=== PATIENT | male | born 1960 | race Caucasian/White ===

== ENCOUNTER 2019-06-30 15:31 | Outpatient (CLI) | payer OTHER, SELFPAY ==
--- NOTE | ~2019-06-30 | XR_ITS ---
XR lumbar spine 2-3V DATE: 06/30/2019 15:53 INDICATION: Myalgia. Back pain. TECHNIQUE: AP, lateral, coned lateral lumbosacral views COMPARISON: None FINDINGS: Normal alignment of the lumbar spine. No fracture or bone destruction or spondylolisthesis. The lumbar pedicles and sacroiliac joints are intact. There is minimal degenerative spurring of the lumbar spine. The lumbar and lumbosacral interspaces are well preserved. IMPRESSION: Minimal degenerative spurring of the lumbar spine Reviewed, dictated and finalized at location B. NING AND DEVELOPMENT ASSOCIATE
--- NOTE | ~2019-06-30 | XR_ITS ---
XR hip BI 2V w AP pelvis DATE: 06/30/2019 15:53 INDICATION: Pelvic and bilateral hip pain. Myalgia. TECHNIQUE: AP pelvis. AP, lateral and crosstable lateral views of each hip COMPARISON: None FINDINGS: There is mild spurring of the right femoral head consistent with mild osteoarthritis. Hip j oint spaces are relatively preserved. No fracture or dislocation, avascular necrosis or bone destruct ion of either hip is noted. The pubic symphysis and sacroiliac joints are intact. No pelvic fracture or bone destruction. IMPRESSION: Mild right hip osteoarthritis Reviewed, dictated and finalized at location B. ESTATE BROKER ASSOCIATE
== END 2019-06-30 15:32 | disposition home or self-care (01) ==
PROVIDERS: PCP Family Medicine; Visit Provider Family Medicine
DX: M79.10 Myalgia, unspecified site (principal); M54.5 Low back pain; M25.551 Pain in right hip; M25.552 Pain in left hip; M16.11 Unilateral primary osteoarthritis, right hip; M46.06 Spinal enthesopathy, lumbar region
CPT/HCPCS: 72100; 73521

== ENCOUNTER → 2020-08-17 02:22 | Outpatient (CLI) | payer OTHER, SELFPAY ==
[2020-08-17 20:22] LABS: SARS-CoV-2 RNA PCR Negative
== END ==
PROVIDERS: PCP Family Medicine; Visit Provider Internal Medicine Gastroenterology
DX: Z01.812 Encounter for preprocedural laboratory examination (principal); Z20.822 Contact with and (suspected) exposure to COVID-19
CPT/HCPCS: C9803; U0003; U0005

== ENCOUNTER 2020-08-21 01:26 | Day surgery (SDC) | payer OTHER, SELFPAY ==
[2020-08-07 13:54] VITALS: BMI 23.1
--- NOTE | 2020-08-20 13:44 | WPDANESEPPF ---
Anes - Initial Pre Proc Eval Procedure: Operation Date: 08/21/20 07:30 Proposed Procedures p Screening Colonoscopy - Fran Cordero MD Date/Time: 08/20/20 13:44 Surgeon: Fran Cordero MD Pre Op Diagnosis: hx of colon polyps, Neoplasm Screening Patient Data Age: 60 Gender: M Height: 5 ft 11 in Weight: 75 kg Allergies Allergy/AdvReac Type Severity Reaction Status Date / Time No Known Allergies Allergy Verified 08/21/20 06:24 Home Medications Medication Instructions Recorded Confirmed Type aspirin 81 mg tablet,delayed 81 mg PO DAILY 05/29/19 08/21/20 History release rosuvastatin 10 mg tablet 10 mg PO DAILY 11/07/19 08/21/20 History Patient hx anesthesia problems: none Family hx anesthesia problems: none PMFSH Past Medical History Medical History Abnormal colonoscopy Anxiety GERD without esophagitis Hyperlipidemia Mixed hyperlipidemia GASPER (obstructive sleep apnea) Family History Family History Mother Family history of glaucoma Hypertension Family history of elevated blood lipids Carcinoma of colon Family history of coronary artery disease Father Hypertension Family history of elevated blood lipids Social History Social History Smoking packs per day: 1 Smoking cigarettes per day: 20.0 Years smoked: 34 Smoking pack-years: 34.00 Smoking status: Former smoker Tobacco type: cigarettes Alcohol intake: never Substance use type: does not use Living arrangements: with family Gender identity (if verbalized by the patient): Male Spiritual care concerns: No Anes - Eval Final PreProcedure Day of Procedure 08/20/20 13:44 Patient weight: normal Heart: regular rate and rhythm Lungs: clear to auscultation Airway: Mallampati scale class II Neurological: alert and oriented Last oral intake: >/= 8 hours ASA classification: II Emergent: no Anesthetic plan: proceed Anesthesia type and monitoring: general GIVS and standard monitoring Informed Consent: The patient's anesthetic plan and its attendant risks and benefits were discussed with the patient/family/POA. Questions were solicited and answers provided to the satisfaction of the patient/family/POA.
[2020-08-21 06:26] VITALS: BMI 23.1
[2020-08-21] MEDS: LACTATED RINGERS 1,000 ML 150 ML IV CONT (06:35)
[2020-08-21 07:02] VITALS: BP 118/79; PULSE 78; RESP 18; TEMP 36.8; O2SAT 100
--- NOTE | 2020-08-21 07:02 | PM.HPGS ---
History of Present Illness History of Present Illness Consent: Risks, benefits, and alternatives have been discussed and questions answered. Patient agrees to proceed with procedure. Chief complaint: hx of colon polyps, Neoplasm Screening Narrative: Sachin Kramer is a 60 year old male Referred for colon cancer screening. He has a family history of colon cancer in his mother Review of Systems Review of Systems: All systems reviewed & are unremarkable except as noted in HPI and below PMFSH Past Medical History Medical History Abnormal colonoscopy Anxiety GERD without esophagitis Hyperlipidemia Mixed hyperlipidemia GASPER (obstructive sleep apnea) Family History Family History Mother Family history of glaucoma Hypertension Family history of elevated blood lipids Carcinoma of colon Family history of coronary artery disease Father Hypertension Family history of elevated blood lipids Social History Social History Smoking packs per day: 1 Smoking cigarettes per day: 20.0 Years smoked: 34 Smoking pack-years: 34.00 Smoking status: Former smoker Tobacco type: cigarettes Alcohol intake: never Substance use type: does not use Living arrangements: with family Gender identity (if verbalized by the patient): Male Spiritual care concerns: No Meds Home Medications and Allergies Home Medications Medication Instructions Recorded Confirmed Type aspirin 81 mg tablet,delayed 81 mg PO DAILY 05/29/19 08/21/20 History release rosuvastatin 10 mg tablet 10 mg PO DAILY 11/07/19 08/21/20 History Allergies Allergy/AdvReac Type Severity Reaction Status Date / Time No Known Allergies Allergy Verified 08/21/20 06:24 Exam Resp: Auscultation: clear to auscultation bilaterally Cardio: Rate: regular rate Rhythm: regular rhythm GI: GI Palp: Yes Soft to palpation and No Tenderness to palpation present (GI) Assessment and Plan Assessment and plan (1) Screening for colon cancer: Code(s): Z12.11 - Encounter for screening for malignant neoplasm of colon Status: Acute Assessment and Plan: Colonoscopy with possible biopsy or polypectomy or cautery or injection of substances.
[2020-08-21 07:03] VITALS: BP 118/79; PULSE 78; RESP 18; TEMP 36.8; O2SAT 100
[2020-08-21 07:43] VITALS: BP 101/66; PULSE 64; RESP 13; O2SAT 97
[2020-08-21 07:53] VITALS: BP 98/67; PULSE 66; RESP 18; O2SAT 99
[2020-08-21 08:03] VITALS: BP 120/76; PULSE 76; RESP 21; O2SAT 99
== END 2020-08-21 08:14 | disposition home or self-care (01) ==
PROVIDERS: PCP Family Medicine; Visit Provider Internal Medicine Gastroenterology
PROC: 0DJD8ZZ Inspection of Lower Intestinal Tract, Via Natural or Artificial Opening Endoscopic (ICD-10-PCS; CPT 45378; principal; 2020-08-21 07:30)
DX: Z12.11 Encounter for screening for malignant neoplasm of colon (principal); K64.8 Other hemorrhoids; D12.2 Benign neoplasm of ascending colon; E78.2 Mixed hyperlipidemia; K21.9 Gastro-esophageal reflux disease without esophagitis; G47.33 Obstructive sleep apnea (adult) (pediatric); F41.9 Anxiety disorder, unspecified; Z79.82 Long term (current) use of aspirin; Z87.891 Personal history of nicotine dependence
CPT/HCPCS: 45380; 88305; J2704; J7120

== ENCOUNTER 2020-11-05 14:33 | Outpatient (CLI) | payer OTHER, SELFPAY ==
--- NOTE | ~2020-11-05 | CT_ITS ---
EXAMINATION: CT lung screening DATE: 11/05/2020 15:48 INDICATION: Lung cancer screening. History of nicotine dependence. TECHNIQUE: Computed tomography (CT) of the chest was performed without intravenous contrast. The dose -length product was 78.57 mGy-cm. Automated exposure control and iterative reconstruction technique w ere employed. COMPARISON: CT dated 12/21/2016 FINDINGS: Heart size is normal. No thoracic lymphadenopathy. Heart size is normal. No significant ple ural or pericardial effusion. There is atherosclerosis of the aorta and coronary arteries.. Slightly increased size of subpleural left paraspinal mass posterior to the descending aorta measuring 3.3 cm craniocaudal x1.9 cm AP x1.8 cm transverse compared with 2.7 x 1.7 x 1.6 on prior examination. There is a 4 mm right lower lobe nodule, image 59. There is a 4 mm right lower lobe nodule, image 70, uncha nged there is a 5 mm right middle lobe nodule without significant change. 3 mm left lower lobe nodule , image 68.. 5 mm subsolid nodule right upper lobe without significant change. IMPRESSION: 1. Lung Rads 4A, suspicious: Recommend follow-up [address], PET/CT or percutaneous biopsy. Slight increased size of subpleural left paraspinal soft tissue mass measuring 3.3 x 1.9 x 1.8 cm. Di fferential diagnosis includes neurogenic tumors, complicated duplication cysts versus malignancy such as lymphoma, or less likely sarcoma or metastatic disease. Reviewed, dictated and finalized at location A. IMPRESSION: 1. Lung Rads 4A, suspicious: Recommend follow-up [address], PET/CT or percutaneous biopsy. Slight increased size of subpleural left paraspinal soft tissue mass measuring 3.3 x 1.9 x 1.8 cm. Differential diagnosis includes neuro genic tumors, complicated duplication cysts versus malignancy such as lymphoma, or less likely sarcoma or metastatic disease.
== END 2020-11-05 14:34 | disposition home or self-care (01) ==
PROVIDERS: PCP Family Medicine; Visit Provider Physician Assistant
DX: Z12.2 Encounter for screening for malignant neoplasm of respiratory organs (principal); Z87.891 Personal history of nicotine dependence; R91.8 Other nonspecific abnormal finding of lung field
CPT/HCPCS: 71271

== ENCOUNTER → 2022-06-23 15:21 | Outpatient (CLI) | payer OTHER, SELFPAY ==
--- NOTE | ~2022-06-23 | XR_ITS ---
EXAMINATION: XR ribs BI 3V w CXR 2V Exam Date/Time: 06/23/2022 15:33 PORCELAIN WAXER HISTORY: Overuse with tennis, B/L/lateral rib pain Comparison: None available. RESULT: Lines, tubes, and devices: None. Lungs and pleura: Clear. Cardiomediastinal silhouette: Stable. Mildly prominent central pulmonary arteries. Other: No acute osseous or upper abdominal finding. IMPRESSION: No acute cardiopulmonary process. No acute osseous finding in the ribs Reviewed, dictated and finalized at location K. ELAIN WAXER
== END ==
PROVIDERS: PCP Family Medicine; Visit Provider Family Medicine
DX: R07.81 Pleurodynia (principal)
CPT/HCPCS: 71046; 71110

== ENCOUNTER 2022-12-15 07:51 | Outpatient (CLI) | payer OTHER, SELFPAY | END 2022-12-15 07:52 | disposition home or self-care (01) | LOC: ANHAUDIO 07:51 | PROVIDERS: PCP Family Medicine; Visit Provider Family Medicine | DX: H90.3 Sensorineural hearing loss, bilateral (principal) | CPT/HCPCS: 92557; 92567 ==

== ENCOUNTER → 2023-07-16 10:25 | Outpatient (CLI) | payer OTHER, SELFPAY ==
--- NOTE | ~2023-07-16 | XR_ITS ---
EXAMINATION: XR lumbar spine min 4V DATE: 07/16/2023 10:58 INDICATION: Low back pain TECHNIQUE: Anteroposterior, lateral, and bilateral oblique views of the lumbar spine, and cone-down l ateral view of the lumbosacral junction were obtained. COMPARISON: 06/30/2019 FINDINGS: Bone alignment is normal. There is no fracture. There is mild loss of intervertebral disc s pace height at L5-S1. There is mild facet joint osteoarthritis at L5-S1. The vertebral body heights a re maintained. There is moderate osteoarthritis of the hips. IMPRESSION: 1. Mild lumbar spondylosis without acute findings or significant interval change. Reviewed, dictated and finalized at location B. TS CENTRE MANAGER IMPRESSION: 1. Mild lumbar spondylosis without acute findings or significant interval ernie stevens
== END ==
PROVIDERS: PCP Family Medicine; Visit Provider Family Medicine
DX: M47.896 Other spondylosis, lumbar region (principal)
CPT/HCPCS: 72110

== ENCOUNTER 2023-11-29 11:12 | Outpatient (CLI) | payer OTHER, SELFPAY ==
--- NOTE | ~2023-11-29 | XR_ITS ---
XR finger 2nd LT min 2V Ordering provider: Cindy Vela DO History: . Lump L 2nd finger b/t mid and dist phalanges . Comparison: None. FINDINGS: BONES: No acute fracture or dislocation. JOINT SPACES: Narrowing of the proximal and distal interphalangeal joints. SOFT TISSUES: Normal. IMPRESSION: No acute osseous abnormality. Osteoarthritic changes of the proximal and distal interphalangeal joints. Reviewed, dictated and finalized at location A.
== END 2023-11-29 11:13 ==
PROVIDERS: PCP Family Medicine; Visit Provider Family Medicine
DX: R22.32 Localized swelling, mass and lump, left upper limb (principal); M19.042 Primary osteoarthritis, left hand
CPT/HCPCS: 73140

== ENCOUNTER 2024-01-20 08:02 | Outpatient (CLI) | payer OTHER, SELFPAY | END 2024-01-20 08:03 | disposition home or self-care (01) | LOC: ANHAUDIO 08:04 | PROVIDERS: PCP Family Medicine; Visit Provider Otolaryngology | DX: H69.90 Unspecified Eustachian tube disorder, unspecified ear (principal); H90.6 Mixed conductive and sensorineural hearing loss, bilateral | CPT/HCPCS: 92557; 92567 ==

== ENCOUNTER 2024-05-09 09:38 | Outpatient (CLI) | payer OTHER, SELFPAY ==
--- NOTE | ~2024-05-09 | XR_ITS ---
XR knee RT min 4V Ordering provider: Cindy Vela DO History: . medial knee pain after getting up from sitting position . Comparison: None. FINDINGS: BONES: No acute fracture or dislocation. JOINT SPACES: Normal. SOFT TISSUES: Normal. IMPRESSION: No acute osseous abnormality right knee. Reviewed, dictated and finalized at location A. DE GAMES MECHANIC
== END 2024-05-09 09:39 | disposition home or self-care (01) ==
LOC: GOSHIMG 09:39
PROVIDERS: PCP Family Medicine; Visit Provider Family Medicine
DX: M25.561 Pain in right knee (principal)
CPT/HCPCS: 73564

== ENCOUNTER 2024-08-10 08:12 | Outpatient (CLI) | payer OTHER, SELFPAY ==
--- NOTE | ~2024-08-10 | MR_ITS ---
MRI of the right knee Clinical history: Pain Technique: Coronal proton density and proton density-weighted images, sagittal proton-density and T2 fat-sat images, and axial proton-density fat-saturated images were acquired. Findings: Anterior and posterior cruciate ligaments are intact. Medial collateral ligament and the la teral collateral ligament complex are intact. Popliteus tendon is intact. Medial and lateral menisci are intact, without evidence of tear. There is minimal chondromalacia patella. There is moderate to high-grade chondral malacia extensively involving the medial femoral condyle. Extensor mechanism is intact. Small joint effusion present. No Lamb's cyst. 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 Mild chondrom alacia patella. Small joint effusion. Reviewed, dictated and finalized at [facility]. 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 Mild chondromalacia patella. Small joint effusion.
== END 2024-08-10 08:13 | disposition home or self-care (01) ==
LOC: GOSHIMG 08:12
PROVIDERS: PCP Family Medicine; Visit Provider Family Medicine
DX: M25.461 Effusion, right knee (principal)
CPT/HCPCS: 73721

== ENCOUNTER 2024-10-18 04:06 | Emergency (ER) | payer OTHER, SELFPAY ==
--- NOTE | ~2024-10-18 | XR_ITS ---
Clinical Indication: Palpitations PA and lateral views of the chest: Comparison: 06/23/2029 Findings: The lungs are clear, without evidence of focal consolidation or pleural effusion. Cardiome diastinal silhouette is within normal limits. Bones and soft tissues are unremarkable. Impression: Normal chest. Reviewed, dictated and finalized at location . Impression: Normal chest.
--- OUTSIDE RECORDS SUMMARY | 2024-10-18 04:08 | XMS_ITS | Encounter Summary ---
Author Organization [facility] Address [address] [place] [address] Phone Care Team Providers Care Flare Worker Name Role Phone Cindy Vela DO Primary Care Provider [phone] Cindy Vela DO Primary Care Provider + [phone] Cindy Vela DO Unavailable [phone] Encounter Details Date Type Department Care Team (Latest Contact Info) Description 11/05/2020 Orders Only [facility] Scanning, Provider Social History Tobacco Use Types Packs/Day Years Used Date Smoking Tobacco: Never Assessed Sex and Gender Information Value Date Recorded Sex Assigned at Not on file 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 Gender Identity Not on file Sexual Orientation Not on file documented as of this encounter Plan of Treatment Not on file documented as of this encounter Procedures Procedure Name Priority Date/Time Associated Diagnosis Comments SCAN - RADIOLOGY/IMAGING 11/05/2020 documented in this encounter Results * SCAN - RADIOLOGY/IMAGING (11/05/2020) Anatomical Region Laterality Modality Other us Provider Scanning Final Result documented in this encounter Visit Diagnoses Not on filedocumented in this encounter Care Teams Flare Worker Relationship Specialty Start Date End Date Cindy Vela DO PCP - General Family Medicine 11/12/20 03/17/23 Cindy Vela DO PCP - General Family Medicine 03/18/23 Cindy Vela DO Family Medicine 03/18/23 documented as of this encounter
[2024-10-18 04:09] VITALS: BP 156/92; PULSE 112; RESP 20; TEMP 36.8; O2SAT 100
--- OUTSIDE RECORDS SUMMARY | 2024-10-18 04:09 | XMS_ITS | Clinical Summary ---
Author Organization [facility] Address [address] [place] [address] Care Team Providers Care Gaming Commissioner Name Role Phone Cindy Vela DO Primary Care Provider [phone]- [phone] Cindy Vela DO Unavailable [phone] Allergies No known active allergies Medications aspirin 81 mg enteric coated tablet daily Active omeprazole (PriLOSEC) 20 mg capsule daily Active coenzyme Q10 200 mg capsule Co Q-10 1 tablet once day Active calcium carbonate (TUMS) 500 mg calcium (200 mg of elemental calcium) chewable tablet Take 1 tablet/chew tab (500 mg total) by mouth daily Active multivitamin capsule Multivitamins 1 tablet once day Active rosuvastatin (CRESTOR) 40 mg tablet TAKE 1 TABLET BY MOUTH EVERYDAY AT BEDTIME 90 tablet 3 4 Active ergocalciferol (VITAMIN D) 50,000 unit capsule Take 1 capsule (50,000 Units total) by mouth once a week 4 Active naproxen (NAPROSYN) 500 mg tablet Take 1 tablet (500 mg total) by mouth 2 (two) times a day 4 Active ezetimibe (ZETIA) 10 mg tablet Take 1 tablet (10 mg total) by mouth daily 90 tablet 3 5 Active Active Problems Patient Care Coordination No te Formatting of this note migh t be different from the original. Referring provider: Dr. Cindy Pate Sachin Williams is a 60 year old with a left paraspinal mass. On 11/05/2020 the patient underwent a lung cancer screening CT which noted a slight increase in size of a left paraspinal mass posterior to the descending aorta measuring 3.3 x 1.9 x 1.8 cm. This previously measured 2.7 x 1.7 x 1.6 cm in November 2016. Additional findings included a 4 mm right lower lobe pulmonary nodule. There was a no other 4 mm right lower lobe pulmonary nodule that was unchanged. There was a 5 mm right middle lobe pulmonary nodule without significant change. There was a 3 mm left lower lobe pulmonary nodule. Finally there was a 5 mm sub solid nodule in the right upper lobe without any significant change. Patient is a current smoker with a 34 pack year smoking history. Patient presents today for further surgical evaluation. Review of systems: Genitourinary: Positive for nighttime urination. Gastrointestinal: Positive for indigestion. Psychiatric: Positive for anxiety. All other systems reviewed and are negative. Problem Noted Date Diagnosed Date Patent foramen ovale 11/17/2023 Precordial chest pain 10/15/2023 Exertional dyspnea 10/06/2023 Lightheadedness 10/06/2023 Periodic limb movement 07/20/2023 Psychophysiological insomnia 06/01/2023 Peripheral arterial disease 04/14/2023 Carotid artery stenosis 04/14/2023 Mixed hyperlipidemia 04/14/2023 Cigarette nicotine dependence in remission 04/14 Obstructive sleep apnea 04/14/2023 Peroneal tendinitis of right lower extremity Benign paraspinal mass 12/30/2020 Multiple pulmonary nodules 11/15/2020 Overview (11/15/2020): Added automatically from request for surgery [id number] Dizziness 06/26/2019 Intermittent claudication 06/26/2019 Palpitations 06/26/2019 Snoring 12/30/2016 Carotid artery stenosis 12/30/2016 Chest pain 12/28/2016 Hyperlipidemia 12/28/2016 Resolved Problems Problem Noted Date Diagnosed Date Resolved Date Obstructive sleep apnea syndrome 02/11/2017 11/02/2023 Immunizations Immunization Administration Dates Next Due Hep B Vaccine 07/22/2005,03/18/2005,02/04/2005 Influenza, Quadrivalent, Rec ombinant, Egg Free, Preservative Free, Intramuscular 03/28/2020,03/23/2019 Influenza, Quadrivalent, Spl it, Preservative Free, Intramuscular 03/31/2018 Moderna SARS-CoV-2 Monovalen t Vaccination (12+ YRS) 07/12/2020,06/13/2020 Surgical History Surgery Date Site/Laterality Comments HERNIA REPAIR Medical History Medical History Date Comments Alcoholism (HCC) HLD (hyperlipidemia) Prostate disorder Gastric reflux GERD (gastroesophageal reflux disease) 6 Sleep apnea 2016 Coronary artery disease Peripheral artery disease Family History Medical History Relation Name Comments Hypertension Brother Aortic aneurysm Father Jg Cancer Father Jg Cancer Mother Za Kramer Clotting disorder Mother Za Kramer Hyperlipidemia Mother Za Kramer Hypertension Mother Za Kramer Relation Name Status Comments Brother Father Jg Mother Za Kramer Alive Social History Tobacco Use Types Packs/Day Years Used Date Smoking Tobacco: Former Cigarettes 1 32.8 0 05/24/1978 - 03/17/2011 Smokeless Tobacco: Never AUDIT-C Answer Date Recorded Q1: How often do you have a drink containing alc ohol? 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 Not on file Not on file N ot on file Obstetrics History Last Filed Vital Signs Vital Sign Reading Time Taken Comments Blood Pressure 112/82 05/31/2024 10:32 AM FOLDING MACHINE SETTER Pulse 70 05/31/2024 10:32 AM FOLDING MACHINE SETTER Temperature 36.4 C (97.6 F) 02/03/2024 1:07 PM CDT Respiratory Rate 18 05/31/2024 10:32 AM FOLDING MACHINE SETTER Oxygen Saturation 98% 05/31/2024 10:32 AM FOLDING MACHINE SETTER Inhaled Oxygen Concentration - - Weight 86.2 kg (190 lb 1.6 oz) 05/31/2024 10:32 AM FOLDING MACHINE SETTER Height 180.3 cm (5' 11) 05/31/2024 10:32 AM FOLDING MACHINE SETTER Body Mass Index 26.51 05/31/2024 10:32 AM FOLDING MACHINE SETTER Plan of Treatment Health Maintenance Due Date Last Done Comments Colon Cancer Screening-Colonoscopy 1960 Depression Screening 1960 Hepatitis C Screening 1960 Prostate Cancer Screening-PSA 1960 DTaP/Tdap/Td Vaccine (1 - Tdap) 1971 Regular Well Visit/Exam 18-64 1978 Pneumococcal vaccine <65 (1 of 2 - PCV) 1979 Zoster Vaccine (1 of 2) 2010 Covid-19 Vaccine (3 - season) 2024, 06/13/2020 Influenza Vaccine (Season Ended) 2025 03/28/2020, 03/23/2019, 03/31/2018 Lung Cancer Screening 05/17/2025 05/16/2024 , 04/30/2023, 03/12/2022 Hepatitis B Screening Completed 07/22/2005 , 03/18/2005, 02/04/2005 Procedures Procedure Name Priority Date/Time Associated Diagnosis Comments CT LUNG CANCER SCREENING Schedule Routine, Read Routine (OP Routine) 05/16/2024 9:50 AM FOLDING MACHINE SETTER Personal history of nicotine dependence from Last 3 Months or Most Recently Relevant to Health Maintenance Results * CT Lung Cancer Screening (05/16/2024 9:50 AM FOLDING MACHINE SETTER) Anatomical Region Laterality Modality Chest N/A Computed Tomogra phy 05/16/2024 10:2 5 AM FOLDING MACHINE SETTER Impressions 05/16/2024 10:49 AM FOLDING MACHINE SETTER 1. LungRADS Category 2 (benign) . Recommend Low dose Screening CT of chest in 12 months. LungRADS Categories: 1 - Negative (no nodules, or only benign calcified or fat-containing nodules) 2 - Benign Appearance or Behavior (nodules with very low likelihood of becoming a clinically active cancer due to size or lack of growth) 3 - Probably Benign (probably benign findings-short term follow up suggested; includes nodules with a low likelihood of becoming a clinically active cancer) 4A,4B,4X - Suspicious (category 3 or 4 nodules with findings for which additional diagnostic testing and/or tissue sampling is recommended) S - Other (clinically significant or potentially clinically significant findings (non-lung cancer) C - Prior Lung Cancer (modifier for patients with a prior diagnosis of lung cancer who return to screening) Dictated by: Almita Dudley MD The radiology attending physician has personally reviewed this study, and had reviewed and/or edited this written report and agrees with it. Electronically signed by: Sachin Okeefe M.D. Narrative 05/16/2024 10:49 AM FOLDING MACHINE SETTER EXAMINATION: Lung cancer screening CT of the Chest without intravenous contrast HISTORY: Lung Cancer Screening TECHNIQUE: Low radiation dose chest protocol. No intravenous contrast. Reconstructed slice width 1.[address] Dose Index 0.84 mGy. Dose-length product 36.5 mGy-cm. COMPARISON: 04/30/2023, 03/12/2022 CT, and 12/21/2016. FINDINGS: Lung nodules or findings of lung cancer: 1. Unchanged 5 mm nodule in the right upper lobe (table position 217.7) dating back to 03/12/2022 and therefore benign. 2. Unchanged 3 mm nodule in the lingula (table position 301.0) unchanged from 2021 3. Several other sub-4 mm nodules (approximately 20) in both lungs are not significantly changed from prior. Smoking related lung disease: Mild apical predominant centrilobular emphysema. Other findings: Unchanged since 1.7 cm posterior mediastinal mass arising at the left T6-T7 level, likely schwannoma. Coronary arterial calcifications. Procedure Note Sachin Okeefe MD - 05/16/2024 EXAMINATION: Lung cancer screening CT of the Chest without intravenous contrast HISTORY: Lung Cancer Screening TECHNIQUE: Low radiation dose chest protocol. No intravenous contrast. Reconstructed slice width 1.[address] Dose Index 0.84 mGy. Dose-length product 36.5 mGy-cm. COMPARISON: 04/30/2023, 03/12/2022 CT, and 12/21/2016. FINDINGS: Lung nodules or findings of lung cancer: 1. Unchanged 5 mm nodule in the right upper lobe (table position 217.7) dating back to 03/12/2022 and therefore benign. 2. Unchanged 3 mm nodule in the lingula (table position 301.0) unchanged from 2021 3. Several other sub-4 mm nodules (approximately 20) in both lungs are not significantly changed from prior. Smoking related lung disease: Mild apical predominant centrilobular emphysema. Other findings: Unchanged since 1.7 cm posterior mediastinal mass arising at the left T6-T7 level, likely schwannoma. Coronary arterial calcifications. IMPRESSION: 1. LungRADS Category 2 (benign) . Recommend Low dose Screening CT of chest in 12 months. LungRADS Categories: 1 - Negative (no nodules, or only benign calcified or fat-containing nodules) 2 - Benign Appearance or Behavior (nodules with very low likelihood of becoming a clinically active cancer due to size or lack of growth) 3 - Probably Benign (probably benign findings-short term follow up suggested; includes nodules with a low likelihood of becoming a clinically active cancer) 4A,4B,4X - Suspicious (category 3 or 4 nodules with findings for which additional diagnostic testing and/or tissue sampling is recommended) S - Other (clinically significant or potentially clinically significant findings (non-lung cancer) C - Prior Lung Cancer (modifier for patients with a prior diagnosis of lung cancer who return to screening) Dictated by: Almita Dudley MD The radiology attending physician has personally reviewed this study, and had reviewed and/or edited this written report and agrees with it. Electronically signed by: Sachin Okeefe M.D. Cindy Vela DO [facility] CT PROCEDURES Final Re sult from Last 3 Months or Most Recently Relevant to Health Maintenance Insurance [facility] [id number] [address] [facility] [id number] Care Teams Gaming Commissioner Relationship Specialty Start Date End Date Cindy Vela DO PCP - General Family Medicine 03/18/23 Cindy Vela DO Family Medicine 03/18/23
--- OUTSIDE RECORDS SUMMARY | 2024-10-18 04:09 | XMS_ITS | Data Portability ---
Author Organization [place] - [facility] OFFICE Address [address] [place] [address] Care Team Providers Care Transitions Manager Name Role Phone XU HAYNES Primary Care Provider Assessment Encounter Date Assessment Date Assessment LastModified by Organization Details LastModified Time 01/16/2020 01/16/2020 Discussed with patient findings, diagnosis, and prognosis. Discussed evaluation and treatment options including risks and benefits with patient, and patient expressed understanding. The following interventions were recommended: heart healthy low-fat, low-sodium diet, begin regular exercise, maintain appropriate weight, continue current medications, needs to keep LDL less than 70 and HDL more than 40, and medical follow-up as noted. Not available 01/15/2020 21:27:15 01/28/2021 01/28/2021 Discussed with patient findings, diagnosis, and prognosis. Discussed evaluation and treatment options including risks and benefits with patient, and patient expressed understanding. The following interventions were recommended: heart healthy low-fat, low-sodium diet, begin regular exercise, maintain appropriate weight, continue current medications, needs to keep LDL less than 70 and HDL more than 40, and medical follow-up as noted. Not available 01/28/2021 12:15:17 04/01/2021 04/01/2021 Discussed with patient findings, diagnosis, and prognosis. Discussed evaluation and treatment options including risks and benefits with patient, and patient expressed understanding. The following interventions were recommended: heart healthy low-fat, low-sodium diet, begin regular exercise, maintain appropriate weight, continue current medications, needs to keep LDL less than 70 and HDL more than 40, and medical follow-up as noted. [email or web address] Not available 03/31/2021 16:35:32 11/25/2021 11/25/2021 Discussed with patient findings, diagnosis, and prognosis. Discussed evaluation and treatment options including risks and benefits with patient, and patient expressed understanding. The following interventions were recommended: heart healthy low-fat, low-sodium diet, begin regular exercise, maintain appropriate weight, continue current medications, needs to keep LDL less than 70 and HDL more than 40, and medical follow-up as noted. [email or web address] Not available 11/25/2021 13:41:39 07/17/2022 07/17/2022 Discussed with patient findings, diagnosis, and prognosis. Discussed evaluation and treatment options including risks and benefits with patient, and patient expressed understanding. The following interventions were recommended: heart healthy low-fat, low-sodium diet, begin regular exercise, maintain appropriate weight, continue current medications, needs to keep LDL less than 70 and HDL more than 40, and medical follow-up as noted. [email or web address] Not available 07/17/2022 11:19:59 Plan of Treatment Reminders Order Date Submit Date Provider Last Modified By Organization Details Last Modified Time Details Appointments None recorded. Lab None recorded. Referral None recorded. Procedures None recorded. Surgeries None recorded. Imaging electrocard iogram 2022 023 MARGUERITE Not available 3 11:22:20 electrocard iogram 2022 023 MARGUERITE Not available 3 11:22:40 electrocard iogram 2021 022 MARGUERITE Not available 2 15:58:55 electrocard iogram 2021 022 MARGUERITE Not available 2 15:59:37 electrocard iogram 2020 021 MARGUERITE Not available 1 10:42:42 electrocard iogram 2020 021 MARGUERITE Not available 1 10:42:10 electrocard iogram 2020 021 MARGUERITE Not available 1 18:22:00 electrocard iogram 2020 021 [email or web address] Not available 1 13:30:19 electrocard iogram 2019 020 MARGUERITE Not available 0 17:06:26 Medication Orders rosuvastati n 40 mg tablet 2021 022 MARGUERITE [id number], [address] [place], [address], 13:54:44 rosuvastati n 20 mg tablet 2020 021 [email or web address] [facility] [id number] In [facility], [address] [place], [address], 11:27:23 Patient TargetsNo targets recorded. Patient Instructions Encounter Date Encounter Id Patient Instructions Last Modified By Organization Details Last Modified Time 01/16/2020 [id number] chest pain: care instructions [email or web address] Not available 01/16/2020 16:57:54 palpitations: care instructions [email or web address] Not available 01/16/2020 16:57:55 sleep apnea: car e instructions [email or web address] Not available 01/16/2020 16:57:55 dizziness: care instructions [email or web address] Not available 01/16/2020 16:57:55 high cholesterol : care instructions [email or web address] Not available 01/16/2020 16:57:54 carotid stenosis : care instructions Not available 01/16/2020 16:57:55 01/28/2021 [id number] chest pain: care instructions [email or web address] Not available 01/28/2021 13:28:42 palpitations: care instructions [email or web address] Not available 01/28/2021 13:28:42 sleep apnea: car e instructions [email or web address] Not available 01/28/2021 13:28:42 dizziness: care instructions [email or web address] Not available 01/28/2021 13:28:41 high cholesterol : care instructions [email or web address] Not available 01/28/2021 13:28:41 carotid stenosis : care instructions [email or web address] Not available 01/28/2021 13:28:42 04/01/2021 [id number] chest pain: care instructions [email or web address] Not available 04/01/2021 12:14:40 palpitations: care instructions [email or web address] Not available 04/01/2021 12:14:40 sleep apnea: car e instructions [email or web address] Not available 04/01/2021 12:14:40 dizziness: care instructions [email or web address] Not available 04/01/2021 12:14:39 high cholesterol : care instructions Not available 04/01/2021 12:14:40 carotid stenosis : care instructions [email or web address] Not available 04/01/2021 12:14:40 11/25/2021 [id number] chest pain: care instructions Not available 11/25/2021 13:54:38 palpitations: care instructions [email or web address] Not available 11/25/2021 13:54:38 sleep apnea: car e instructions [email or web address] Not available 11/25/2021 13:54:38 dizziness: care instructions Not available 11/25/2021 13:54:38 high cholesterol : care instructions [email or web address] Not available 11/25/2021 13:54:38 carotid stenosis : care instructions [email or web address] Not available 11/25/2021 13:54:38 07/17/2022 [id number] chest pain: care instructions [email or web address] Not available 07/17/2022 11:35:06 palpitations: care instructions [email or web address] Not available 07/17/2022 11:35:05 sleep apnea: car e instructions [email or web address] Not available 07/17/2022 11:35:06 dizziness: care instructions [email or web address] Not available 07/17/2022 11:35:05 high cholesterol : care instructions [email or web address] Not available 07/17/2022 11:35:06 carotid stenosis : care instructions [email or web address] Not available 07/17/2022 11:35:05 Reason for Referral None Reported. Results Created Date Observation Date Name Description Value Unit Range Abnormal Flag Note LastModifiedBy Organization Detail LastModifiedTime 01/16/20 20 01/16/2020 elect rocar diogr am No observ ation record ed. [email or web address] Not Available 01/15 14:40:06 01/17/20 20 01/02/2020 US, gianlucale x, arter ial, lower extre mity No observ ation record ed. [email or web address] Not Available 2019 09:45:33 01/29/20 21 01/28/2021 elect rocar diogr am No observ ation record ed. augustine Arias MD [address], [place], [address], 03/20/2021 18:22:00 01/29/20 elect rocar diogr am No observ ation record ed. Fredo Arias MD [address], [place], [address], 01/28/2021 13:28:29 02/12/20 21 02/07/2021 elect rocar diogr am No observ ation record ed. [email or web address] Not Available 2020 11:57:59 03/31/2003/31/2021 elect rocar diogr am No observ ation record ed. bryan Arias MD [address], [place], [address], 05/14/2021 10:42:42 03/31/20 21 03/31/2021 elect rocar diogr am No observ ation record ed. augustine Arias MD [address], [place], [address], 05/14/2021 10:42:10 11/26/19 22 11/25/2021 elect rocar diogr am No observ ation record ed. [email or web address] Fredo Arias MD [address], [place], [address], 11/25/2021 15:58:55 11/26/19 22 11/25/2021 elect rocar diogr am No observ ation record ed. [email or web address] Fredo Arias MD [address], [place], [address], 11/25/2021 15:59:37 11/27/19 22 11/25/2021 elect rocar diogr am No observ ation record ed. [email or web address] Not Available 2021 09:37:13 12/26/19 22 12/11/2021 US, carot id arter y No observ ation record ed. [email or web address] Not Available 2021 15:00:57 07/17/19 23 07/21/2022 elect rocar diogr am No observ ation record ed. [email or web address] Fredo Arias MD [address], [place], [address], 07/21/2022 11:22:20 07/17/19 23 07/21/2022 elect rocar diogr am No observ ation record ed. [email or web address] Fredo Arias MD [address], [place], [address], 07/21/2022 11:22:40 07/17/19 23 07/17/2022 elect rocar diogr am No observ ation record ed. [email or web address] Not Available 2022 09:15:20 Result Notes None recorded. Problems Name Problem SNOMED Code Status Onset Date Resolution Date Notes Provider Name and Address Organization Details Recorded Time Chest pain 45948827 Active 2016 Santos le[place] [facility] 7 14:32:46 Hyperlipidemia 58344073 Active 2016 Santos le[place] [facility] 7 14:34:08 Snoring 73487109 Active 2016 Celestina le[place]uga [place] - [facility] 7 14:42:48 Mass of body structure 866029025 Active 2016 Micheal le[place]uga [place] - [facility] 7 15:15:08 Carotid artery stenosis 59530785 Active 2016 Michael le[place] [facility] 7 15:19:51 Obstructive sleep apnea syndrome 95046016 Active 2016 Michael le[place] [facility] 7 15:19:43 Intermittent claudication 85839520 Active 2019 Michael le[place] [facility] 0 11:30:40 Palpitations 41284753 Active 2019 Michael le[place] [facility] 0 11:33:26 Dizziness 076690293 [facility] 0 11:37:21 Problem Notes None recorded. Procedures Surgical History Date Name Laterality Status Provider Name and Address Organization Details Recorded Time Hernia Repair completed Celestina Aden I Cuco [facility] 12/30/2016 14:47:09 Imaging Results None recorded. Procedure Notes None recorded. Medical Equipment None Reported. Allergies No known drug allergies Medications Name Sig Start Date Stop Date Status Note LastModified by Organization Details LastModified Time cyclobenz aprine 10 mg tablet TAKE 1 TABLET BY MOUTH THREE TIMES A DAY NEEDED FOR MUSCLE SPASM active no longer take 07/17/22 mb Not Available Not Available Not Available atorvasta tin 40 mg tablet TAKE 1 TABLET AT BEDTIME 06/27 completed Not Available Not Available Not Available atorvasta tin 20 mg tablet 1 TAB QD 12/30 completed Not Available Not Available Not Available valacyclo vir 1 gram tablet 11/30 completed Not Available Not Available Not Available hydroxyzi ne HCl 50 mg tablet 1 tablet once a day 07/17 completed Pt is no more on thsi medicati on 01/29/20 21 sm Not Available Not Available Not Available ciproflox acin 500 mg tablet 06/28 completed Not Available Not Available Not Available aspirin 81 mg tablet,de layed release Take 1 tablet every day by oral route. active Not Available Not Available No t Available Prevacid 15 mg capsule,d elayed release Take 1 capsule twice a day by oral route as directed . 11/30 completed Not Available Not Available Not Available meloxicam 7.5 mg tablet TAKE 1 TABLET BY MOUTH EVERY DAY 11/25 completed no longer take 11/25/21 mb Not Available Not Available Not Available alprazola m 0.25 mg tablet 07/17 completed pt. no longer takes 1 FH Not Available Not Available Not Available polymyxin B sulfate 10,000 unit-trim ethoprim 1 mg/mL eye drops 07/03 completed Not Available Not Available Not Available nitroglyc marty 0.4 mg sublingua l tablet Place 1 tablet by sublingu al route as needed. 12/30 completed Not Available Not Available Not Available omeprazol e 20 mg capsule,d elayed release TAKE 1 CAPSULE BY MOUTH EVERY DAY active Not Available Not Available No t Available levofloxa peter 500 mg tablet 06/28 completed Not Available Not Available Not Available methylpre dnisolone 4 mg tablets in a dose pack TAKE 6 TABLETS ON DAY 1 DIRECTED ON PACKAGE AND DECREASE BY 1 TAB EACH DAY FOR A TOTAL OF 6 DAYS active no longer take 07/17/22 mb Not Available Not Available Not Available naproxen 500 mg tablet TAKE 1 TABLET BY MOUTH TWICE A DAY NEEDED FOR PAIN 07/17 completed Not Available Not Available Not Available amoxicill in 875 mg-potass ium clavulana te 125 mg tablet 06/28 completed Not Available Not Available Not Available Tylenol 650 mg tablet,ex tended release Take 2 tablets every 8 hours by oral route as needed. 12/30 completed Not Available Not Available Not Available rosuvasta tin 10 mg tablet TAKE ONE TABLET BY MOUTH ONCE DAILY AT BEDTIME 02/25 completed Not Available Not Available Not Available rosuvasta tin 20 mg tablet TAKE 1 TABLET BY MOUTH AT BEDTIME 07/17 completed no longer take 07/17/22 mb Not Available Not Available Not Available rosuvasta tin 40 mg tablet TAKE 1 TABLET BY MOUTH EVERYDAY AT BEDTIME 2022 active Not Available Not Available Not Avai lable Co Q-10 1 tablet once day 07/17 completed Not Available Not Available Not Available famotidin e 20mg twice a day 07/03 completed Pt is no more on this medicati on Not Available Not Available Not Available Multivita mins 1 tablet once day active Not Available Not Available No t Available Afluria Quad 60 mcg (15 mcg x 4)/0.5 mL IM suspensio n 07/03 completed Not Available Not Available Not Available Flowflex COVID-19 Antigen Home Test kit USE DIRECTED active Not Available Not Available No t Available Vitals Date Recorded Body height Body mass index (BMI) Body weight Heart rate Oxygen saturation Oxygen saturation in Arterial blood by Pulse oximetry Systolic blood pressure Diastolic blood pressure Provider Name and Address Organization Details Last Updated DateTime 3 180.34 cm 25 kg/m2 40544.0 3 g 62 /min 98 % 98 % 124 mm[Hg] 62 mm[Hg] Dara Benak [facility] 3 10:36:38 Date Recorded Body height Body mass index (BMI) Body weight Heart rate Oxygen saturation Oxygen saturation in Arterial blood by Pulse oximetry Systolic blood pressure Diastolic blood pressure Provider Name and Address Organization Details Last Updated DateTime 2 180.34 cm 24.1 kg/m2 84307.4 8 g 70 /min 97 % 97 % 132 mm[Hg] 68 mm[Hg] Dara Lorenz [facility] 2 12:30:09 Date Recorded Body height Body mass index (BMI) Body weight Heart rate Respiratory rate Oxygen saturation Oxygen saturation in Arterial blood by Pulse oximetry Systolic blood pressure Diastolic blood pressure Provider Name and Address Organization Details Last Updated DateTime 0 180.34 cm 24 kg/m2 32921.8 9 g 68 /min 18 /min 98 % 98 % 122 mm[Hg] 80 mm[Hg] Phoebe [facility] 0 13:04:48 Date Recorded Body height Body mass index (BMI) Body weight Heart rate Respiratory rate Oxygen saturation Oxygen saturation in Arterial blood by Pulse oximetry Systolic blood pressure Diastolic blood pressure Provider Name and Address Organization Details Last Updated DateTime 1 180.34 cm 24 kg/m2 90430.8 9 g 70 /min 18 /min 98 % 98 % 122 mm[Hg] 80 mm[Hg] Phoebe [facility] 1 12:17:29 Date Recorded Body height Body mass index (BMI) Body weight Heart rate Oxygen saturation Oxygen saturation in Arterial blood by Pulse oximetry Systolic blood pressure Diastolic blood pressure Provider Name and Address Organization Details Last Updated DateTime 1 180.34 cm 25.9 kg/m2 74390.1 8 g 74 /min 96 % 96 % 110 mm[Hg] 72 mm[Hg] Sara Charlene [facility] 1 11:01:54 Social History Question Answer Notes LastModified by Organizat ion Details LastModified Time Tobacco Smoking Status Former [facility]oker quit 2010 Not Available [facility] 03/26/2020 03:30:41 What Is Your Level Of Caffeine Consumption? Occasional [id number] Information not available 03/26/2020 How Much Tobacco Do You Chew? None [id number] Information not available 03/26/2020 What Type Of Diet Are You Following? REGULAR [id number] Information not available 03/26/2020 Which Illicit Or Recreational Drugs Have You Used? No [id number] Information not available 03/26/2020 Live Alone Or With Others? Alone [email or web address] Information not available 12/30/2016 Marital Status Unknown [email or web address] Informatio n not available 12/30/2016 What Was The Date Of Your Most Recent Tobacco Screening? 12/30/2016 [id number] Information not available 03/26/2020 How Many Children Do You Have? 0 [id number] Information not available 03/26/2020 How Much Tobacco Do You Smoke? No [id number] Information not available 03/26/2020 General Stress Level Low [email or web address] Information not available 12/30/2016 Sex: Unknown Functional Status Question Answer Note LastModified by Organizat ion Details LastModified Time What is your level of alcohol consumption? None [id number] Information not available 03/26/2020 Do you or have you ever used smokeless tobacco? Former smokeless tobacco user [id number] Information not available 03/26/2020 What is your occupation? RETIRED [id number] Information not available 03/26/2020 Do you or have you ever used e-cigarettes or vape? Never used electronic cigarettes [id number] Information not available 03/26/2020 What is your exercise level? Occasional [id number] Information not available 03/26/2020 Mental Status None recorded. Family History Relationship Description Onset Age of this Age Resolved Age Notes LastModified by Organization Details LastModified Time Mother Cerebrovascu lar accident [email or web address] Not available 11/2016 14:37:20 Mother Malignant tumor of colon [email or web address] Not available 2016 14:37:37 Mother Hypertensive disorder [email or web address] Not available 2016 14:39:24 Mother Hypercholest erolemia [email or web address] Not available 2016 14:44:38 Father Aortic aneurysm [email or web address] Not available 2016 14:39:00 Father Hypertensive disorder [email or web address] Not available 2016 14:39:15 Brother Hypertensive disorder [email or web address] Not available 2016 14:39:29 Maternal Grandfather Myocardial infarction [email or web address] Not available 12/30 14:44:21 Medical History Condition Response Carotid Disease Y Hyperlipidemia Y Sleep Apnea Y Past Encounters Encounter ID Performer Location Encounter Start Date Encounter Closed Date Diagnosis/Indication Diagnosis SNOMED-CT Code Diagnosis ICD10 Code Diagnosis Note [id number] Michael Jennings MD [facility] [address] [place] [address] 12/30/2016 14:14:58 12/30/2016 17:11:32 Chest pain 44388904 R07.9 Resolved. He had Stress echo: 12/21/16 No echocardio graphic evidence of ischemia. Above average exercise capacity. Hyperlipidemia 01468802 E78.5 Needs to keep LDL less than 70, and HDL more than 40. LDL 106 12/21/16. Increased atorvastat in to 40 mg qd 12/30/16. FLP, CMP 4 weeks. Mass of evi dy structure 088385763 R22.9 Had 12/21/16 MRI THORACIC SPINE: Left paraspinal mass, imaging characteri stics most consistent with neurogenic tumor such as schwannoma or neurofibro ma. Consider 3-6 month follow up thoracic MRI. Pt has followed up with PCP with plan for orthopedic or CT surgery consult/re view for considerat ion of radiology- guided biopsy in tertiary center. Carotid ar nafisa stenosis 83966832 I65.29 Had Carotid: 12/21/16 <50% stenosis from minimal plaque in the right internal carotid artery. Follow-up in 1 year. Needs to keep LDL less than 70, and HDL more than 40. Begin ASA 81 mg qd. Snoring 22802316 R06.83 Reports daytime somnolence , AM headaches, fatigue, and does not feel well rested. Obtain SNAP. [id number] MD Brendan Vasquez Office [address] [place] [address] 02/11/2017 14:19:35 02/12/2017 14:41:04 Chest pain 43007792 R07.9 Resolved. He had Stress echo: 12/21/16 No echocardio graphic evidence of ischemia. Above average exercise capacity. Mass of evi dy structure 942907674 R22.9 Had 12/21/16 MRI THORACIC SPINE: Left paraspinal mass, imaging characteri stics most consistent with neurogenic tumor such as schwannoma or neurofibro ma. Consider 3-6 month follow up thoracic MRI. Pt has followed up with PCP with plan for orthopedic or CT surgery consult/re view for considerat ion of radiology- guided biopsy in tertiary center after 3 month repeat imaging. Hyperlipidemia 76024726 E78.5 Needs to keep LDL less than 70, and HDL more than 40. LDL 106 12/21/16. Increased atorvastat in to 40 mg qd 12/30/16 02/05/17:L DL 85 Pt wants to improve low-fat, low-chol. diet and increase exercise before increase in statin. Repeat FLP in 4-6 mo. Carotid ar nafisa stenosis 57182058 I65.29 Had Carotid: 12/21/16 <50% stenosis from minimal plaque in the right internal carotid artery. Follow-up in 1 year. Needs to keep LDL less than 70, and HDL more than 40. Begin ASA 81 mg qd. Obstructiv e sleep apnea syndrome 19387068 G47.33 Reports daytime somnolence , AM headaches, fatigue, and does not feel well rested. Mild GASPER on sleep study. Begin CPAP. [id number] MD Brendan Vasquez Office [address] [place] [address] 04/22/2017 13:59:57 04/23/2017 13:12:35 Chest pain 68684411 R07.9 Resolved. He had Stress echo: 12/21/16 No echocardio graphic evidence of ischemia. Above average exercise capacity. Mass of evi dy structure 049110422 R22.9 Had 12/21/16 MRI THORACIC SPINE: Left paraspinal mass, imaging characteri stics most consistent with neurogenic tumor such as schwannoma or neurofibro ma. Consider 3-6 month follow up thoracic MRI. Pt has followed up with PCP after 3 month repeat imaging which was unchanged. One year f/u with PCP. Hyperlipidemia 64451587 E78.5 Needs to keep LDL less than 70, and HDL more than 40. LDL 106 12/21/16. Increased atorvastat in to 40 mg qd 12/30/16 02/05/17:L DL 85 Pt wants to improve low-fat, low-chol. diet and increase exercise before increase in statin. Repeat FLP in 3 mo. and consider CK given occasional muscle aches. Carotid ar nafisa stenosis 71472428 I65.29 Had Carotid: 12/21/16 <50% stenosis from minimal plaque in the right internal carotid artery. Follow-up in 1 year. Needs to keep LDL less than 70, and HDL more than 40. Begin ASA 81 mg qd. Obstructiv e sleep apnea syndrome 36809301 G47.33 Reports daytime somnolence , AM headaches, fatigue, and does not feel well rested. Mild GASPER on sleep study. Began CPAP. Tolerating . Compliant. Continue. [id number] MD Brendan Vasquez Office [address] [place] [address] 11/30/2017 10:29:08 11/30/2017 11:12:28 Chest pain 88751733 R07.9 Resolved. He had Stress echo: 12/21/16 No echocardio graphic evidence of ischemia. Above average exercise capacity. Mass of evi dy structure 272705970 R22.9 Had 12/21/16 MRI THORACIC SPINE: Left paraspinal mass, imaging characteri stics most consistent with neurogenic tumor such as schwannoma or neurofibro ma. Consider 3-6 month follow up thoracic MRI. Mass was present at [place] at same size 3 years prior on imaging, and 3 mo. f/u was also stable. Hyperlipidemia 35874622 E78.5 Needs to keep LDL less than 70, and HDL more than 40. LDL 106 12/21/16. Increased atorvastat in to 40 mg qd 12/30/16 Had 02/05/17: LDL 85. Pt wants to improve low-fat, low-chol. diet and increase exercise before increase in statin. Had 11/26/17: LDL 91. Patient does not want to increase statin at present. Increase diet control. Carotid ar nafisa stenosis 01159040 I65.29 Had Carotid: 12/21/16 <50% stenosis from minimal plaque in the right internal carotid artery. Follow-up in 1 year. Needs to keep LDL less than 70, and HDL more than 40. Begin ASA 81 mg qd. Obstructiv e sleep apnea syndrome 47406830 G47.33 Reports daytime somnolence , AM headaches, fatigue, and does not feel well rested. Mild GASPER on sleep study. Began CPAP. Tolerating . Compliant. Continue. [id number] MD Brendan Vasquez Office [address] [place] [address] 06/28/2018 11:58:52 06/28/2018 13:51:13 Chest pain 98905547 R07.9 Resolved. He had Stress echo: 12/21/16 No echocardio graphic evidence of ischemia. Above average exercise capacity. Mass of evi dy structure 792866085 R22.9 Had 12/21/16 MRI THORACIC SPINE: Left paraspinal mass, imaging characteri stics most consistent with neurogenic tumor such as schwannoma or neurofibro ma. Consider 3-6 month follow up thoracic MRI. Mass was present at [place] at same size 3 years prior on imaging, and 3 mo. f/u was also stable. Hyperlipidemia [id number] E78.5 Needs to keep LDL less than 70, and HDL more than 40. LDL 106 12/21/16. Increased atorvastat in to 40 mg qd 12/30/16 Had 02/05/17: LDL 85. Pt wants to improve low-fat, low-chol. diet and increase exercise before increase in statin. Had 11/26/17: LDL 91. Had 06/23/18: LDL 92 Patient does not want to increase statin at present. Increase diet control. Carotid ar nafisa stenosis [id number] I65.29 Had Carotid: 12/21/16 <50% stenosis from minimal plaque in the right internal carotid artery. Had 12/02/17 CAROTID: Normal internal carotid arteries. Needs to keep LDL less than 70, and HDL more than 40. Begin ASA 81 mg qd. Continue statin. Obstructiv e sleep apnea syndrome 55106606 G47.33 Reports daytime somnolence , AM headaches, fatigue, and does not feel well rested. Mild GASPER on sleep study. Began CPAP. Tolerating . Compliant previously . Continue but need to resume CPAP after ear/sinus infection resolves. Following with ENT. [id number] MD Brendan Vasquez Office [address] [facility] [place] [address] 01/03/2019 10:39:35 01/03/2019 11:51:32 Chest pain [id number] R07.9 Resolved. He had Stress echo: 12/21/16 No echocardio graphic evidence of ischemia. Above average exercise capacity. Hyperlipidemia 80050888 E78.5 Needs to keep LDL less than 70-100, and HDL more than 40. LDL 106 12/21/16. Increased atorvastat in to 40 mg qd 12/30/16 Had 02/05/17: LDL 85. Pt wants to improve low-fat, low-chol. diet and increase exercise before increase in statin. Had 11/26/17: LDL 91. Had 06/23/18: LDL 92 Obtain FLP/BMP results per PCP. Patient does not want to increase statin at present. Increase diet control. Carotid ar nafisa stenosis [id number] I65.29 Had Carotid: 12/21/16 <50% stenosis from minimal plaque in the right internal carotid artery. Had 12/02/17 CAROTID: Normal internal carotid arteries. Needs to keep LDL less than 70, and HDL more than 40. Begin ASA 81 mg qd. Continue statin. Obstructiv e sleep apnea syndrome 29884080 G47.33 Reports daytime somnolence , AM headaches, fatigue, and does not feel well rested. Mild GASPER on sleep study. Began CPAP. Tolerating . Increased compliance . Following with ENT. Mass of evi dy structure [id number] R22.9 Had 12/21/16 MRI THORACIC SPINE: Left paraspinal mass, imaging characteri stics most consistent with neurogenic tumor such as schwannoma or neurofibro ma. Consider 3-6 month follow up thoracic MRI. Mass was present at [place] at same size 3 years prior on imaging, and 3 mo. f/u was also stable. [id number] MD Brendan Vasquez Office [address] [facility] [place] [address] 06/27/2019 10:14:56 06/27/2019 11:44:04 Chest pain 68989437 R07.9 Reported central chest pain/ tightness for 2-3 seconds only on one occasion. He had Stress echo: 12/21/16 No echocardio graphic evidence of ischemia. Above average exercise capacity. Hyperlipidemia 54311924 E78.5 Needs to keep LDL less than 70-100, and HDL more than 40. LDL 106 12/21/16. Increased atorvastat in to 40 mg qd 12/30/16 Had 02/05/17: LDL 85. Pt wants to improve low-fat, low-chol. diet and increase exercise before increase in statin. Had 11/26/17: LDL 91. Had 06/23/18: LDL 92 Patient stopped atorvastat in 05/24/19 per PCP due to arm and leg muscle aches then restarted 06/16/19. Arm and leg muscle aches did not improve off atorvastat in and did not worsen when back on atorvastat in. Had LIPID 06/14/2019 CH 301 HDL 53 TR 99 LDL 225 while off atorvastat in. Changed atorvastat in 40 mg to rosuvastat in 10 mg qHS. Obtain CPK now. Obtain CMP, CPK, Mg, TSH, FLP in 1 mo. Carotid ar nafisa stenosis [id number] I65.29 Had Carotid: 12/21/16 <50% stenosis from minimal plaque in the right internal carotid artery. Had 12/02/17 CAROTID: Normal internal carotid arteries. Needs to keep LDL less than 70, and HDL more than 40. Began ASA 81 mg qd. Continue statin. Obstructiv e sleep apnea syndrome 60183828 G47.33 Reports daytime somnolence , AM headaches, fatigue, and does not feel well rested. Mild GASPER on sleep study. Began CPAP, but has stopped due to jaw pain and aches. Increased compliance . Mass of evi dy structure 997040526 R22.9 Had 12/21/16 MRI THORACIC SPINE: Left paraspinal mass, imaging characteri stics most consistent with neurogenic tumor such as schwannoma or neurofibro ma. Consider 3-6 month follow up thoracic MRI. Mass was present at [place] at same size 3 years prior on imaging, and 3 mo. f/u was also stable. Intermitte nt claudication [id number] I73.9 Obtain UBALDO. Palpitations [id number] R0 0.2 Obtain 48 hour Holter since has brief palpitatio ns every other day. Dizziness 591154064 R42 Has dizziness with walking on occasion. Obtain echo to evaluate for structural /functiona l disease. [id number] MD Brendan Vasquez Office [address] [facility] [place] [address] 11/14/2019 10:37:13 11/14/2019 15:52:33 Chest pain 77786009 R07.9 No chest pain. He had Stress echo: 12/21/16 No echocardio graphic evidence of ischemia. Above average exercise capacity. Hyperlipidemia 72733852 E78.5 Patient stopped atorvastat in 05/24/19 per PCP due to arm and leg muscle aches then restarted 06/16/19. Arm and leg muscle aches did not improve off atorvastat in and did not worsen when back on atorvastat in. Had LIPID 06/14/2019 CH 301 HDL 53 TR 99 LDL 225 while off atorvastat in. Changed atorvastat in 40 mg to rosuvastat in 10 mg qHS, which he tolerated. Had lipid panel, blood 07-21-2019 : TC 180, TR 65, HDL 63, LDL 102. Needs to keep LDL less than 70, and HDL more than 40. Obtained normal CPK and TSH 06/2019. Obtain FLP/CMP results per PCP mid October 2019. Consider increase in rosuvastat in to 20 mg qHS if LDL > 70 on labs 10/2019. Carotid ar nafisa stenosis 66731183 I65.29 Had Carotid: 12/21/16 <50% stenosis from minimal plaque in the right internal carotid artery. Had 12/02/17 CAROTID: Normal internal carotid arteries. Needs to keep LDL less than 70, and HDL more than 40. Began ASA 81 mg qd. Continue statin. Obstructiv e sleep apnea syndrome 43711662 G47.33 Reports daytime somnolence , AM headaches, fatigue, and does not feel well rested. Mild GASPER on sleep study. Began CPAP, but has stopped due to jaw pain and aches, resolved. Increase compliance . Mass of evi dy structure 237385644 R22.9 Had 12/21/16 MRI THORACIC SPINE: Left paraspinal mass, imaging characteri stics most consistent with neurogenic tumor such as schwannoma or neurofibro ma. Consider 3-6 month follow up thoracic MRI. Mass was present at [place] at same size 3 years prior on imaging, and 3 mo. f/u was also stable. Intermitte nt claudication 46979302 I73.9 Has intermitte nt thigh pain bilaterall y with walking, worse on the left. Had 07/03/19 UBALDO (ankle brachial index): Calcified non-compre ssible lower extremity arteries on the left. Right leg normal. Obtain bilateral leg arterial Duplex. Palpitations 86404209 R0 0.2 Resolved. Had 07/11/19 48 hour Holter Monitor: Unremarkab le Holter. NSR. (He had palpitatio ns during the monitor.) Dizziness 748837065 R42 Resolved. Previously had dizziness with walking on occasion. Had ECHO done in 07/06/19 showed LV systolic function is normal , EF 55-60%, Right ventricle is top normal in size with normal systolic function. There is no aortic valve stenosis. There is no mitral regurgitat ion. There is trace tricuspid regurgitat ion. [id number] MD Brendan Vasquez Office [address] [facility] [place] [address] [place] [address] 01/16/2020 12:49:07 01/16/2020 13:03:44 Chest pain 36354520 R07.9 No chest pain. He had Stress echo: 12/21/16 No echocardio graphic evidence of ischemia. Above average exercise capacity. Hyperlipidemia 14962879 E78.5 Patient stopped atorvastat in 05/24/19 per PCP due to arm and leg muscle aches then restarted 06/16/19. Arm and leg muscle aches did not improve off atorvastat in and did not worsen when back on atorvastat in. Had LIPID 06/14/2019 CH 301 HDL 53 TR 99 LDL 225 while off atorvastat in. Changed atorvastat in 40 mg to rosuvastat in 10 mg qHS, which he tolerated. Had lipid panel, blood 07-21-2019 : TC 180, TR 65, HDL 63, LDL 102. Needs to keep LDL less than 70, and HDL more than 40. Obtained normal CPK and TSH 06/2019. Obtain FLP/CMP results per PCP mid October 2019. Consider increase in rosuvastat in to 20 mg qHS if LDL > 70 on labs 10/2019. Carotid ar nafisa stenosis [id number] I65.29 Had Carotid: 12/21/16 <50% stenosis from minimal plaque in the right internal carotid artery. Had 12/02/17 CAROTID: Normal internal carotid arteries. Needs to keep LDL less than 70, and HDL more than 40. Began ASA 81 mg qd. Continue statin. Obstructiv e sleep apnea syndrome 16283887 G47.33 Reports daytime somnolence , AM headaches, fatigue, and does not feel well rested. Mild GASPER on sleep study. Began CPAP, but has stopped due to jaw pain and aches, resolved. Increase compliance . Mass of evi dy structure 213141817 R22.9 Had 12/21/16 MRI THORACIC SPINE: Left paraspinal mass, imaging characteri stics most consistent with neurogenic tumor such as schwannoma or neurofibro ma. Consider 3-6 month follow up thoracic MRI. Mass was present at [place] at same size 3 years prior on imaging, and 3 mo. f/u was also stable. Intermitte nt claudication 30929451 I73.9 Has intermitte nt thigh pain bilaterall y with walking, worse on the left. Had 07/03/19 UBALDO (ankle brachial index): Calcified non-compre ssible lower extremity arteries on the left. Right leg normal. Obtain bilateral leg arterial Duplex. Palpitations 54158287 R0 0.2 Resolved. Had 07/11/19 48 hour Holter Monitor: Unremarkab le Holter. NSR. (He had palpitatio ns during the monitor.) Dizziness 423957026 R42 Resolved. Previously had dizziness with walking on occasion. Had ECHO done in 07/06/19 showed LV systolic function is normal , EF 55-60%, Right ventricle is top normal in size with normal systolic function. There is no aortic valve stenosis. There is no mitral regurgitat ion. There is trace tricuspid regurgitat ion. [id number] MD Brendan Vasquez Office [address] [facility] [address] [address] [address] [place] [address] 01/28/2021 12:02:53 01/28/2021 13:30:19 Chest pain 87958389 R07.9 No chest pain, except occasional tenderness on palpation. He had Stress echo: 12/21/16 No echocardio graphic evidence of ischemia. Above average exercise capacity. Hyperlipidemia 63351601 E78.5 Patient stopped atorvastat in 05/24/19 per PCP due to arm and leg muscle aches then restarted 06/16/19. Arm and leg muscle aches did not improve off atorvastat in and did not worsen when back on atorvastat in. Had LIPID 06/14/2019 CH 301 HDL 53 TR 99 LDL 225 while off atorvastat in. Mother had high LDL and patient may have familial hyperchole sterolemia . Changed atorvastat in 40 mg to rosuvastat in 10 mg qHS, which he tolerated. Had lipid panel, blood 07-21-2019 : TC 180, TR 65, HDL 63, LDL 102. Needs to keep LDL less than 70, and HDL more than 40. Obtained normal CPK and TSH 06/2019. Had 10/25/20: LDL 121, Cr 1.05, K 4.3, hgb 13.8, TSH 1.09 Increased rosuvastat in to 20 mg qHS 01/28/21. Obtain FLP, CMP, Mg, CPK in 4-6 weeks. Carotid ar nafisa stenosis 23411854 I65.29 Had Carotid: 12/21/16 <50% stenosis from minimal plaque in the right internal carotid artery. Had 12/02/17 CAROTID: Normal internal carotid arteries. Needs to keep LDL less than 70, and HDL more than 40. Began ASA 81 mg qd. Continue statin. Obstructiv e sleep apnea syndrome 59307932 G47.33 Reports daytime somnolence , AM headaches, fatigue, and does not feel well rested. Mild GASPER on sleep study. Began CPAP. Increase compliance . Mass of evi dy structure 629569490 R22.9 Stable for 8 years. Had 12/21/16 MRI THORACIC SPINE: Left paraspinal mass, imaging characteri stics most consistent with neurogenic tumor such as schwannoma or neurofibro ma. Consider 3-6 month follow up thoracic MRI. Mass was present at [place] at same size 3 years prior on imaging, and 3 mo. f/u was also stable. Intermitte nt claudication 76282487 I73.9 Has improving intermitte nt thigh pain bilaterall y with walking and at rest, worse on the left. Had 07/03/19 UBALDO (ankle brachial index): Calcified non-compre ssible lower extremity arteries on the left. Right leg normal. Obtained bilateral leg arterial Duplex US, duplex, arterial, lower extremity Had 01/02/20 ART DUP: Mild PVD. Increase walking. Palpitations 67013092 R0 0.2 Resolved. Had 07/11/19 48 hour Holter Monitor: Unremarkab le Holter. NSR. (He had palpitatio ns during the monitor.) Dizziness 476707938 R42 Improved. Previously had dizziness with walking on occasion. Had ECHO done in 07/06/19 showed LV systolic function is normal , EF 55-60%, Right ventricle is top normal in size with normal systolic function. There is no aortic valve stenosis. There is no mitral regurgitat ion. There is trace tricuspid regurgitat ion. [id number] MD Brendan Vasquez Office [address] [facility] [address] [place] [address] 04/01/2021 10:31:32 04/01/2021 12:15:07 Chest pain 61760563 R07.9 No chest pain, except occasional tenderness on palpation. He had Stress echo: 12/21/16 No echocardio graphic evidence of ischemia. Above average exercise capacity. Hyperlipidemia 72631496 E78.5 Patient stopped atorvastat in 05/24/19 per PCP due to arm and leg muscle aches then restarted 06/16/19. Arm and leg muscle aches did not improve off atorvastat in and did not worsen when back on atorvastat in. Had LIPID 06/14/2019 CH 301 HDL 53 TR 99 LDL 225 while off atorvastat in. Mother had high LDL and patient may have familial hyperchole sterolemia . Changed atorvastat in 40 mg to rosuvastat in 10 mg qHS, which he tolerated. Had lipid panel, blood 07-21-2019 : TC 180, TR 65, HDL 63, LDL 102. Needs to keep LDL less than 70, and HDL more than 40. Obtained normal CPK and TSH 06/2019. Had 10/25/20: LDL 121, Cr 1.05, K 4.3, hgb 13.8, TSH 1.09 Increased rosuvastat in to 20 mg qHS 01/28/21. Had 03/07/21: LDL 105, Cr 1.13, K 4.5, Mg 2.0, CPK 77 Recommende d increase in rosuvastat in to 40 mg qHS 04/01/21 but patient prefers to increase dietary control first. Carotid ar nafisa stenosis 59295243 I65.29 Had Carotid: 12/21/16 <50% stenosis from minimal plaque in the right internal carotid artery. Had 12/02/17 CAROTID: Normal internal carotid arteries. Needs to keep LDL less than 70, and HDL more than 40. Began ASA 81 mg qd. Continue statin. Obstructiv e sleep apnea syndrome 56256853 G47.33 Reports daytime somnolence , AM headaches, fatigue, and does not feel well rested. Mild GASPER on sleep study. Began CPAP. Increase compliance . Mass of evi dy structure 340130375 R22.9 Stable for 8 years. Had 12/21/16 MRI THORACIC SPINE: Left paraspinal mass, imaging characteri stics most consistent with neurogenic tumor such as schwannoma or neurofibro ma. Consider 3-6 month follow up thoracic MRI. Mass was present at [place] at same size 3 years prior on imaging, and 3 mo. f/u was also stable. Intermitte nt claudication 37050642 I73.9 Has improving intermitte nt thigh pain bilaterall y with walking and at rest, worse on the left. Had 07/03/19 UBALDO (ankle brachial index): Calcified non-compre ssible lower extremity arteries on the left. Right leg normal. Obtained bilateral leg arterial Duplex US, duplex, arterial, lower extremity Had 01/02/20 ART DUP: Mild PVD. Continue ASA, statin. Increase walking. Palpitations 88182817 R0 0.2 Resolved. Had 07/11/19 48 hour Holter Monitor: Unremarkab le Holter. NSR. (He had palpitatio ns during the monitor.) Dizziness 670492940 R42 Improved. Previously had dizziness with walking on occasion. Had ECHO done in 07/06/19 showed LV systolic function is normal , EF 55-60%, Right ventricle is top normal in size with normal systolic function. There is no aortic valve stenosis. There is no mitral regurgitat ion. There is trace tricuspid regurgitat ion. [id number] MD Brendan Vasquez Office [address] [facility] [address] [place] [address] 11/25/2021 11:57:58 11/25/2021 14:09:25 Chest pain 65366465 R07.9 No chest pain, except occasional tenderness on palpation. He had Stress echo: 12/21/16: No echocardio graphic evidence of ischemia. Above average exercise capacity. Hyperlipidemia 91104065 E78.5 Patient stopped atorvastat in 05/24/19 per PCP due to arm and leg muscle aches then restarted 06/16/19. Arm and leg muscle aches did not improve off atorvastat in and did not worsen when back on atorvastat in. Had LIPID 06/14/2019 CH 301 HDL 53 TR 99 LDL 225 while off atorvastat in. Mother had high LDL and patient may have familial hyperchole sterolemia . Changed atorvastat in 40 mg to rosuvastat in 10 mg qHS, which he tolerated. Had lipid panel, blood 07-21-2019 : TC 180, TR 65, HDL 63, LDL 102. Needs to keep LDL less than 70, and HDL more than 40. Obtained normal CPK and TSH 06/2019. Had 10/25/20: LDL 121, Cr 1.05, K 4.3, hgb 13.8, TSH 1.09 Increased rosuvastat in to 20 mg qHS 01/28/21. Had 03/07/21: LDL 105, Cr 1.13, K 4.5, Mg 2.0, CPK 77 Had 11/01/21: Cr 1.05, K 4.1, LDL 91Recommen ded increase in rosuvastat in to 40 mg qHS 04/01/21 but patient prefers to increase dietary control first. Increased to rosuvastat in 40 mg HS 11/25/21. Obtain FLP, TSH, Mg, CMP, CBC. Carotid ar nafisa stenosis 54701930 I65.29 Had Carotid: 12/21/16 <50% stenosis from minimal plaque in the right internal carotid artery. Had 12/02/17 CAROTID: Normal internal carotid arteries. Needs to keep LDL less than 70, and HDL more than 40. Began ASA 81 mg qd. Continue statin. Obtain carotid U/S. Obstructiv e sleep apnea syndrome 51056897 G47.33 Reports daytime somnolence , AM headaches, fatigue, and does not feel well rested. Mild GASPER on sleep study. Began CPAP. Continue compliance . Mass of evi dy structure 586546747 R22.9 Stable for 8 years. Had 12/21/16 MRI THORACIC SPINE: Left paraspinal mass, imaging characteri stics most consistent with neurogenic tumor such as schwannoma or neurofibro ma. Consider 3-6 month follow up thoracic MRI. Mass was present at [place] at same size 3 years prior on imaging, and 3 mo. f/u was also stable. He has chest CT upcoming at [facility]. Intermitte nt claudication 83590859 I73.9 Has improving intermitte nt thigh pain bilaterall y with walking and at rest, worse on the left. Had 07/03/19 UBALDO (ankle brachial index): Calcified non-compre ssible lower extremity arteries on the left. Right leg normal. Obtained bilateral leg arterial Duplex US, duplex, arterial, lower extremity Had 01/02/20 ART DUP: Mild PVD. Continue ASA, statin. Increase walking. Palpitations 13913562 R0 0.2 Rare. For 1-2 seconds. Had 07/11/19 48 hour Holter Monitor: Unremarkab le Holter. NSR. (He had palpitatio ns during the monitor.) Reduce caffeine. Dizziness 172434831 R42 Improved. Previously had dizziness with walking on occasion. Had ECHO done in 07/06/19 showed LV systolic function is normal , EF 55-60%, Right ventricle is top normal in size with normal systolic function. There is no aortic valve stenosis. There is no mitral regurgitat ion. There is trace tricuspid regurgitat ion. [id number] MD Brendan Vasquez Office [address] [address] [place], [place] [address] [address] 07/17/2022 10:17:15 07/17/2022 11:43:22 Chest pain 45436739 R07.9 No chest pain, except occasional tenderness on palpation. No exertional chest pain. May have costochond ritis. He had Stress echo: 12/21/16: No echocardio graphic evidence of ischemia. Above average exercise capacity. Hyperlipidemia 33904972 E78.5 Patient stopped atorvastat in 05/24/19 per PCP due to arm and leg muscle aches then restarted 06/16/19. Arm and leg muscle aches did not improve off atorvastat in and did not worsen when back on atorvastat in. Had LIPID 06/14/2019 CH 301 HDL 53 TR 99 LDL 225 while off atorvastat in. Mother had high LDL and patient may have familial hyperchole sterolemia . Changed atorvastat in 40 mg to rosuvastat in 10 mg qHS, which he tolerated. Had lipid panel, blood 07-21-2019 : TC 180, TR 65, HDL 63, LDL 102. Needs to keep LDL less than 70, and HDL more than 40. Obtained normal CPK and TSH 06/2019. Had 10/25/20: LDL 121, Cr 1.05, K 4.3, hgb 13.8, TSH 1.09 Increased rosuvastat in to 20 mg qHS 01/28/21. Had 03/07/21: LDL 105, Cr 1.13, K 4.5, Mg 2.0, CPK 77 Had 11/01/21: Cr 1.05, K 4.1, LDL 91 Increased to rosuvastat in 40 mg HS 11/25/21. Had 07/02/22 CMP: GL 112, BUN 15, CR 1.06, EGFR 79, NA 140, K 4.3, CL 106, CO2 29, CA 8.8, AST 14, ALT 14, LIPID: CH 163, HDL 50, TR 69, LDL 97, CBC: WBC 5.1, RBC 4.39, HGB 13.5, HCT 39.7, PLT 172, TSH 1.29, PSA 0.53, MG 2.1 Recommende d ezetimibe but patient prefers to increase dietary control first. Obtain FLP, TSH, Mg, CMP, CBC. Carotid ar nafisa stenosis [id number] I65.29 Mild. Had US, carotid artery 12/11/21:An tegrade flow noted in both vertebral arteries. Very mild right internal carotid artery stenosis with less than 15% diameter stenosis. Mild left internal carotid artery stenosis with less than 50% diameter stenosis. Had Carotid: 12/21/16 <50% stenosis from minimal plaque in the right internal carotid artery. Had 12/02/17 CAROTID: Normal internal carotid arteries. Needs to keep LDL less than 70, and HDL more than 40. Began ASA 81 mg qd. Continue statin. Obtain carotid U/S 12/2022. Obstructiv e sleep apnea syndrome 69295362 G47.33 Reports daytime somnolence , AM headaches, fatigue, and does not feel well rested. Mild GASPER on sleep study. Began CPAP. Continue compliance . Mass of evi dy structure 255372053 R22.9 Stable for 8 years. Had 12/21/16 MRI THORACIC SPINE: Left paraspinal mass, imaging characteri stics most consistent with neurogenic tumor such as schwannoma or neurofibro ma. Consider 3-6 month follow up thoracic MRI. Mass was present at [place] at same size 3 years prior on imaging, and 3 mo. f/u was also stable. He has chest CT upcoming at [facility]. Last in 02/2022. Intermitte nt claudication 63972211 I73.9 Has improving intermitte nt thigh pain bilaterall y with walking and at rest, worse on the left. Had 07/03/19 UBALDO (ankle brachial index): Calcified non-compre ssible lower extremity arteries on the left. Right leg normal. Obtained bilateral leg arterial Duplex US, duplex, arterial, lower extremity Had 01/02/20 ART DUP: Mild PVD. Continue ASA, statin. Increase walking. Palpitations 99174140 R0 0.2 Rare. For 1-2 seconds. Had 07/11/19 48 hour Holter Monitor: Unremarkab le Holter. NSR. (He had palpitatio ns during the monitor.) Reduce caffeine. Dizziness 008313334 R42 Improved. Previously had dizziness with walking on occasion. Had ECHO done in 07/06/19 showed LV systolic function is normal , EF 55-60%, Right ventricle is top normal in size with normal systolic function. There is no aortic valve stenosis. There is no mitral regurgitat ion. There is trace tricuspid regurgitat ion. Health Concerns Section Related Observation LastModified by Organization Detai ls LastModified Time None Recorded Concern Status LastModified by Organization Details LastModified Time None Recorded Advance Directives Directive None Recorded Payers Insurance Date Sequence Insurance Name Policy Number Policy Gloria Covered Member ID Gloria Member ID Guarantor Name 11/25/2021 1 [employer] - DOS PRIOR TO 20 - [facility] [employer] [id number] Sachin Kramer [id number] Sachin Kramer 07/16/2022 1 [employer] - [facility] [employer] (PPO) Sachin Kramer [id number] OI Sachin Kramer Notes Date Note Type Note Provider Name and Address Organization Details Recorded Time 0 text/html 01/16/20 CC : Follow-up Palpitation 59 year-old white man with h/o hyperlipidemia, former tobacco use (quit 2010), GASPER (on CPAP), is here for follow up palpitations. Previously, he was in [facility] in 12/21/16 because of Chest pain. He ruled out for AR by serial trop-I. Had negative SE done in 12/21/16. Patient reports feeling well overall. Patient is active, exercising regularly with tennis and walking. Reports BP 120/70. Reported no chest pain. No arm pain. No neck pain. No nausea and vomiting. No diaphoresis. No shortness of breath at rest. No dyspnea on exertion. No fatigue. No orthopnea. Rare PND with CPAP. No leg swelling. Reports palpitations for 1-2 seconds, several episodes a day for 3 weeks. Reports resolution of dizziness with walking. No syncope. No pre-syncope. Reports claudication with occasional leg pain with walking. No major bleeding events. No side effects from medications. Complete ROS negative except as stated in the HPI and ROS. Reports snoring. Previously, reports normal home sleep study 3 years ago. Reports daytime somnolence, AM headaches, fatigue, and does not feel well rested. Sleep study completed on 01/14/17 with mild GASPER. Reports snoring. Previously, reports normal home sleep study 3 years ago. Reports daytime somnolence, AM headaches, fatigue, and does not feel well rested. Sleep study completed on 01/14/17 with mild GASPER. Had Stress echo: 12/21/16 No echocardiographic evidence of ischemia. No ECG evidence of ischemia. No exercise induced chest pain. No significant exercise induced arrhythmias. Above average exercise capacity. Had ECHO done in 07/06/19 showed LV systolic function is normal , EF 55-60%, Right ventricle is top normal in size with normal systolic function. There is no aortic valve stenosis. There is no mitral regurgitation. There is trace tricuspid regurgitation. Had 07/11/19 48 hour Holter Monitor: Unremarkable Holter. NSR. (He had palpitations during the monitor.) Had 07/03/19 UBALDO (ankle brachial index): Calcified non-compressible lower extremity arteries on the left. Right leg normal. Results from this visit, or from the past:CMP 11/04/2019GL 87 BUN 17 CR 1.07 NA 141 K 4.1 CH 106 CO2 29 CA 9.1 AST 21 ALT 22 ALK PH 78 LIPID 11/04/2019 CH 169 HDL 50 TR 78 LDL 102 lipid panel, blood 07-21-2019 07/21/19 LIPID: TC 180, TR 65, HDL 63, LDL 102 CMP, serum or plasma 07-21-2019 07/21/2019 Glucose 98,BUN 15,Creati 0.99,Na 144,K 4.5,Cl 105,Ca 9.2,AST 20,ALT 18,Alkaline phosphatase 81,Ca 9.2, CPK 150 normal, normal TSH and Mg. 06-27-2019 06/27/2019 Creatine: 80LIPID 06/14/2019 CH 301 HDL 53 TR 99 LDL 235 06/23/18: TC 178 ,TG 108, HDL 66 ,LDL 92,AST 22,ALT 26,02/05/17:NA 140,K 4.4,CL 104,CO2 28,GLU 99,BUN 14,CR 1.10,AST 15,ALT 15,TG 69,TC 155,LDL 85, HDL54.12/21/16 : SOD 137,K 3.5,CL 105,CO2 10,GLU 112,BUN 17,CR 1.00,AST 24,ALT 37, . electrocardiogram 06-27-2019 06/27/2019 : EKG : Normal sinus Rhythm, normalEKG 01/03/19 Normal sinus Rhythm, normal EKG 06/28/18:Sinus rhythm,inverted T wave is aVL.EKG 11/30/17: NSR. WNLEKG 04/22/17 Sinus Rhythm Right atrial enlargement BORDERLINEEK12/20/16 Sinus rhythm. Normal ECG. Had 07/11/19 48 hour Holter Monitor: Unremarkable Holter. NSR. (He had palpitations during the monitor.) US, echocardiogram 07-06-2019 07/06/19 Echo- LV Wall thickness is normal 12/02/17 CAROTID: Normal internal carotid arteries. Had 07/03/19 UBALDO (ankle brachial index): Calcified non-compressible lower extremity arteries on the left. Right leg normal. US, doppler, arterial 07-03-2019 07/03/19 Doppler- Abn. ankle brachial index. Calcified non-compressible lower extremity arteries. SE: 12/21/16 No echocardiographic evidence of ischemia. No ECG evidence of ischemia. No exercise induced chest pain. No significant exercise induced arrhythmias. Above average exercise capacity. Carotid: 12/21/16 <50% stenosis from minimal plaque in the right internal carotid artery. CT BRAIN W/O: 12/20/16 Normal brain. 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 If there are any prior chest x-rays or gross-sectional imaging at outside institution, recommend obtaining and comparing to the exam. Otherwise consider 3-6 month follow up thoracic MRI. Mild thoracic spondylosis. 12/21/16 CTA CHEST/ABDOMEN/PELVIS: Normal caliber thoracic and abdominal aorta with no aneurysm or dissection. Nonspecific 2.7x 1.7x 1.6 cm pleural versus subpleural left para spinal nodule posterior to the descending aorta at the level of T6-T7. Differential would include neurogenic tumor such as schwannoma, neurofibroma,ganglima or paraganglioma,foregut duplication cyst or less likely malignancy such as lymphoma or least likely primary sarcoma. The location in very close proximity to the posterior margin of the aorta would be problematic for percutaneous biopsy. The lesionis subtly visible on the lateral chest radiograph from one day prior and would recommend correlation with any prior outside imaging to assess for chronicity. If prior imaging unavailable for would consider further evaluation with pre-and postcontrast thoracic spine MRI. CT, brain, w/o contrast 12-20-2016 CT brain W/O: 12/20/16 Normal brain. Christel Damon [place], [place] - [facility] 03/17/2020 15:16:25 1 text/html 01/28/21 CC : Follow-up Palpitation 60 year-old white man with h/o PAD, hyperlipidemia, former tobacco use (quit 2010, 30 pack-year), GASPER (on CPAP), left paraspinal mass (stable), is here for follow up palpitations. Previously, he was in [facility] in 12/21/16 because of Chest pain. He ruled out for AR by serial trop-I. Had negative SE done in 12/21/16. Patient reports feeling well overall. Patient is active, exercising regularly with tennis and walking. He sprained ankle. Reports BP 120/70. Reported no exertional chest pain but reports occasional tenderness left chest. No arm pain. No neck pain. No nausea and vomiting. No diaphoresis. No shortness of breath at rest. No dyspnea on exertion. No fatigue. No orthopnea. Rare PND with CPAP. No leg swelling. Reports resolution of palpitations. Reports resolution of dizziness with walking. No syncope. No pre-syncope. Reports claudication with occasional leg pain with walking. No major bleeding events. No side effects from medications. Complete ROS negative except as stated in the HPI and ROS. Reports snoring. Previously, Reports daytime somnolence, AM headaches, fatigue, and does not feel well rested. Sleep study completed on 01/14/17 with mild GASPER. Reports snoring. Previously, reports normal home sleep study 3 years ago. Reports daytime somnolence, AM headaches, fatigue, and does not feel well rested. Sleep study completed on 01/14/17 with mild GASPER. Had Stress echo: 12/21/16 No echocardiographic evidence of ischemia. No ECG evidence of ischemia. No exercise induced chest pain. No significant exercise induced arrhythmias. Above average exercise capacity. Had ECHO done in 07/06/19 showed LV systolic function is normal , EF 55-60%, Right ventricle is top normal in size with normal systolic function. There is no aortic valve stenosis. There is no mitral regurgitation. There is trace tricuspid regurgitation. Had 07/11/19 48 hour Holter Monitor: Unremarkable Holter. NSR. (He had palpitations during the monitor.) Had 07/03/19 UBALDO (ankle brachial index): Calcified non-compressible lower extremity arteries on the left. Right leg normal. Results from this visit, or from the past: Had 10/25/20: LDL 121, Cr 1.05, K 4.3, hgb 13.8, TSH 1.09 CMP 11/04/2019GL 87 BUN 17 CR 1.07 NA 141 K 4.1 CH 106 CO2 29 CA 9.1 AST 21 ALT 22 ALK PH 78 LIPID 11/04/2019 CH 169 HDL 50 TR 78 LDL 102 lipid panel, blood 07-21-2019 07/21/19 LIPID: TC 180, TR 65, HDL 63, LDL 102 CMP, serum or plasma 07-21-2019 07/21/2019 Glucose 98,BUN 15,Creati 0.99,Na 144,K 4.5,Cl 105,Ca 9.2,AST 20,ALT 18,Alkaline phosphatase 81,Ca 9.2, CPK 150 normal, normal TSH and Mg. 06-27-2019 06/27/2019 Creatine: 80LIPID 06/14/2019 CH 301 HDL 53 TR 99 LDL 235 06/23/18: TC 178 ,TG 108, HDL 66 ,LDL 92,AST 22,ALT 26,02/05/17:NA 140,K 4.4,CL 104,CO2 28,GLU 99,BUN 14,CR 1.10,AST 15,ALT 15,TG 69,TC 155,LDL 85, HDL54.12/21/16 : SOD 137,K 3.5,CL 105,CO2 10,GLU 112,BUN 17,CR 1.00,AST 24,ALT 37, . electrocardiogram : EKG ; normal Sinus Rhythmelectrocardiogram 06-27-2019 06/27/2019 : EKG : Normal sinus Rhythm, normalEKG 01/03/19 Normal sinus Rhythm, normal EKG 06/28/18:Sinus rhythm,inverted T wave is aVL.EKG 11/30/17: NSR. WNLEKG 04/22/17 Sinus Rhythm Right atrial enlargement BORDERLINEEK12/20/16 Sinus rhythm. Normal ECG. Had 07/11/19 48 hour Holter Monitor: Unremarkable Holter. NSR. (He had palpitations during the monitor.) US, echocardiogram 07-06-2019 07/06/19 Echo- LV Wall thickness is normal 01/02/20 ART DUP: Mild PVD. 12/02/17 CAROTID: Normal internal carotid arteries. 07/06/19 ECHO: LV wall thickness is normal. LV systolic function is normal. The estimated left ventricle ejection fraction is 55-60%(normal). Right ventricle is top normal in size with normal systolic function. There is no aortic valve stenosis. There is no mitral regurgitation. There is trace tricuspid regurgitation. US, carotid artery CAROTID: Normal internal carotid arteries. holter monitor Holter Monitor: Unremarkable holter. NSR Had 07/03/19 UBALDO (ankle brachial index): Calcified non-compressible lower extremity arteries on the left. Right leg normal. US, doppler, arterial 07-03-2019 07/03/19 Doppler- Abn. ankle brachial index. Calcified non-compressible lower extremity arteries. SE: 12/21/16 No echocardiographic evidence of ischemia. No ECG evidence of ischemia. No exercise induced chest pain. No significant exercise induced arrhythmias. Above average exercise capacity. Carotid: 12/21/16 <50% stenosis from minimal plaque in the right internal carotid artery. CT BRAIN W/O: 12/20/16 Normal brain. 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 If there are any prior chest x-rays or gross-sectional imaging at outside institution, recommend obtaining and comparing to the exam. Otherwise consider 3-6 month follow up thoracic MRI. Mild thoracic spondylosis. 12/21/16 CTA CHEST/ABDOMEN/PELVIS: Normal caliber thoracic and abdominal aorta with no aneurysm or dissection. Nonspecific 2.7x 1.7x 1.6 cm pleural versus subpleural left para spinal nodule posterior to the descending aorta at the level of T6-T7. Differential would include neurogenic tumor such as schwannoma, neurofibroma,ganglima or paraganglioma,foregut duplication cyst or less likely malignancy such as lymphoma or least likely primary sarcoma. The location in very close proximity to the posterior margin of the aorta would be problematic for percutaneous biopsy. The lesionis subtly visible on the lateral chest radiograph from one day prior and would recommend correlation with any prior outside imaging to assess for chronicity. If prior imaging unavailable for would consider further evaluation with pre-and postcontrast thoracic spine MRI. CT, brain, w/o contrast 12-20-2016 CT brain W/O: 12/20/16 Normal brain. Michael Jennings [place], [place] - [facility] 01/28/2021 13:29:01 text/html 04/01/21 CC : Follow-up Palpitation 61 year-old white man with h/o PAD, carotid artery stenosis, hyperlipidemia, former tobacco use (quit 2010, 30 pack-year), GASPER (on CPAP), left paraspinal mass (stable), is here for follow up palpitations. Previously, he was in [facility] in 12/21/16 because of Chest pain. He ruled out for AR by serial trop-I. Had negative SE done in 12/21/16. Patient reports feeling well overall. Patient is active, exercising regularly with tennis and walking. He sprained ankle. Reports BP 120/70. Reported no exertional chest pain but reports occasional tenderness left chest. No arm pain. No neck pain. No nausea and vomiting. No diaphoresis. No shortness of breath at rest. No dyspnea on exertion. No fatigue. No orthopnea. Rare PND with CPAP. No leg swelling. Reports resolution of palpitations. Reports resolution of dizziness with walking. No syncope. No pre-syncope. Reports claudication with occasional leg pain with walking. No major bleeding events. No side effects from medications. Complete ROS negative except as stated in the HPI and ROS. Reports snoring. Previously, Reports daytime somnolence, AM headaches, fatigue, and does not feel well rested. Sleep study completed on 01/14/17 with mild GASPER. Reports snoring. Previously, reports normal home sleep study 3 years ago. Reports daytime somnolence, AM headaches, fatigue, and does not feel well rested. Sleep study completed on 01/14/17 with mild GASPER. Had Stress echo: 12/21/16 No echocardiographic evidence of ischemia. No ECG evidence of ischemia. No exercise induced chest pain. No significant exercise induced arrhythmias. Above average exercise capacity. Had ECHO done in 07/06/19 showed LV systolic function is normal , EF 55-60%, Right ventricle is top normal in size with normal systolic function. There is no aortic valve stenosis. There is no mitral regurgitation. There is trace tricuspid regurgitation. Had 07/11/19 48 hour Holter Monitor: Unremarkable Holter. NSR. (He had palpitations during the monitor.) Had 01/02/20 ART DUP: Mild PVD. Had 07/03/19 UBALDO (ankle brachial index): Calcified non-compressible lower extremity arteries on the left. Right leg normal. Results from this visit, or from the past: Had 03/07/21: LDL 105, Cr 1.13, K 4.5, Mg 2.0, CPK 77 Had 10/25/20: LDL 121, Cr 1.05, K 4.3, hgb 13.8, TSH 1.09 CMP 11/04/2019GL 87 BUN 17 CR 1.07 NA 141 K 4.1 CH 106 CO2 29 CA 9.1 AST 21 ALT 22 ALK PH 78 LIPID 11/04/2019 CH 169 HDL 50 TR 78 LDL 102 lipid panel, blood 07-21-2019 07/21/19 LIPID: TC 180, TR 65, HDL 63, LDL 102 CMP, serum or plasma 07-21-2019 07/21/2019 Glucose 98,BUN 15,Creati 0.99,Na 144,K 4.5,Cl 105,Ca 9.2,AST 20,ALT 18,Alkaline phosphatase 81,Ca 9.2, CPK 150 normal, normal TSH and Mg. 06-27-2019 06/27/2019 Creatine: 80LIPID 06/14/2019 CH 301 HDL 53 TR 99 LDL 235 06/23/18: TC 178 ,TG 108, HDL 66 ,LDL 92,AST 22,ALT 26,02/05/17:NA 140,K 4.4,CL 104,CO2 28,GLU 99,BUN 14,CR 1.10,AST 15,ALT 15,TG 69,TC 155,LDL 85, HDL54.12/21/16 : SOD 137,K 3.5,CL 105,CO2 10,GLU 112,BUN 17,CR 1.00,AST 24,ALT 37, . electrocardiogram : EKG ; normal Sinus Rhythmelectrocardiogram 06-27-2019 06/27/2019 : EKG : Normal sinus Rhythm, normalEKG 01/03/19 Normal sinus Rhythm, normal EKG 06/28/18:Sinus rhythm,inverted T wave is aVL.EKG 11/30/17: NSR. WNLEKG 04/22/17 Sinus Rhythm Right atrial enlargement BORDERLINEEK12/20/16 Sinus rhythm. Normal ECG. Had 07/11/19 48 hour Holter Monitor: Unremarkable Holter. NSR. (He had palpitations during the monitor.) US, echocardiogram 07-06-2019 07/06/19 Echo- LV Wall thickness is normal 01/02/20 ART DUP: Mild PVD. 12/02/17 CAROTID: Normal internal carotid arteries. 07/06/19 ECHO: LV wall thickness is normal. LV systolic function is normal. The estimated left ventricle ejection fraction is 55-60%(normal). Right ventricle is top normal in size with normal systolic function. There is no aortic valve stenosis. There is no mitral regurgitation. There is trace tricuspid regurgitation. US, carotid artery CAROTID: Normal internal carotid arteries. holter monitor Holter Monitor: Unremarkable holter. NSR Had 07/03/19 UBALDO (ankle brachial index): Calcified non-compressible lower extremity arteries on the left. Right leg normal. US, doppler, arterial 07-03-2019 07/03/19 Doppler- Abn. ankle brachial index. Calcified non-compressible lower extremity arteries. SE: 12/21/16 No echocardiographic evidence of ischemia. No ECG evidence of ischemia. No exercise induced chest pain. No significant exercise induced arrhythmias. Above average exercise capacity. Carotid: 12/21/16 <50% stenosis from minimal plaque in the right internal carotid artery. CT BRAIN W/O: 12/20/16 Normal brain. 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 If there are any prior chest x-rays or gross-sectional imaging at outside institution, recommend obtaining and comparing to the exam. Otherwise consider 3-6 month follow up thoracic MRI. Mild thoracic spondylosis. 12/21/16 CTA CHEST/ABDOMEN/PELVIS: Normal caliber thoracic and abdominal aorta with no aneurysm or dissection. Nonspecific 2.7x 1.7x 1.6 cm pleural versus subpleural left para spinal nodule posterior to the descending aorta at the level of T6-T7. Differential would include neurogenic tumor such as schwannoma, neurofibroma,ganglima or paraganglioma,foregut duplication cyst or less likely malignancy such as lymphoma or least likely primary sarcoma. The location in very close proximity to the posterior margin of the aorta would be problematic for percutaneous biopsy. The lesionis subtly visible on the lateral chest radiograph from one day prior and would recommend correlation with any prior outside imaging to assess for chronicity. If prior imaging unavailable for would consider further evaluation with pre-and postcontrast thoracic spine MRI. CT, brain, w/o contrast 12-20-2016 CT brain W/O: 12/20/16 Normal brain. Michael Jennings [place], [place] - [facility] 04/01/2021 12:15:04 2 text/html 11/25/2021 CC : Follow-up Palpitation 61 year-old white man with h/o PAD, carotid artery stenosis, hyperlipidemia, former tobacco use (quit 2010, 30 pack-year), GASPER (on CPAP), left paraspinal mass (stable), is here for follow up palpitations. Previously, he was in [facility] in 12/21/16 because of Chest pain. He ruled out for AR by serial trop-I. Had negative SE done in 12/21/16. Patient reports feeling well overall. Patient is active, exercising regularly with tennis and walking. He sprained ankle. Reports BP not assessed. Reported no exertional chest pain, with resolution of occasional tenderness left chest. No arm pain. No neck pain. No nausea and vomiting. No diaphoresis. No shortness of breath at rest. No dyspnea on exertion. No fatigue. No orthopnea. Rare PND with CPAP. No leg swelling. Reports rare palpitations for 1-2 seconds only, worse with caffeine and stress. Reports resolution of dizziness with walking. No syncope. No pre-syncope. Reports stable infrequent claudication with occasional leg pain with walking. No major bleeding events. No side effects from medications. Complete ROS negative except as stated in the HPI and ROS. Reports snoring. Previously, Reports daytime somnolence, AM headaches, fatigue, and does not feel well rested. Sleep study completed on 01/14/17 with mild GASPER. Reports snoring. Previously, reports normal home sleep study 3 years ago. Reports daytime somnolence, AM headaches, fatigue, and does not feel well rested. Sleep study completed on 01/14/17 with mild GASPER. Had Stress echo: 12/21/16 No echocardiographic evidence of ischemia. No ECG evidence of ischemia. No exercise induced chest pain. No significant exercise induced arrhythmias. Above average exercise capacity. Had ECHO done in 07/06/19 showed LV systolic function is normal , EF 55-60%, Right ventricle is top normal in size with normal systolic function. There is no aortic valve stenosis. There is no mitral regurgitation. There is trace tricuspid regurgitation. Had 07/11/19 48 hour Holter Monitor: Unremarkable Holter. NSR. (He had palpitations during the monitor.) Had 01/02/20 ART DUP: Mild PVD. Had 07/03/19 UBALDO (ankle brachial index): Calcified non-compressible lower extremity arteries on the left. Right leg normal. Results from this visit, or from the past: Had 11/01/21: Cr 1.05, K 4.1, LDL 91 lipid panel, blood [id number] PANEL; Cholesterol-181, HDL-59, Triglyceride-80, LDLs-105 CMP; Glucose- 102, Had 03/07/21: LDL 105, Cr 1.13, K 4.5, Mg 2.0, CPK 77 Had 10/25/20: LDL 121, Cr 1.05, K 4.3, hgb 13.8, TSH 1.09 CMP 11/04/2019GL 87 BUN 17 CR 1.07 NA 141 K 4.1 CH 106 CO2 29 CA 9.1 AST 21 ALT 22 ALK PH 78 LIPID 11/04/2019 CH 169 HDL 50 TR 78 LDL 102 lipid panel, blood 07-21-2019 07/21/19 LIPID: TC 180, TR 65, HDL 63, LDL 102 CMP, serum or plasma 07-21-2019 07/21/2019 Glucose 98,BUN 15,Creati 0.99,Na 144,K 4.5,Cl 105,Ca 9.2,AST 20,ALT 18,Alkaline phosphatase 81,Ca 9.2, CPK 150 normal, normal TSH and Mg. 06-27-2019 06/27/2019 Creatine: 80LIPID 06/14/2019 CH 301 HDL 53 TR 99 LDL 235 06/23/18: TC 178 ,TG 108, HDL 66 ,LDL 92,AST 22,ALT 26,02/05/17:NA 140,K 4.4,CL 104,CO2 28,GLU 99,BUN 14,CR 1.10,AST 15,ALT 15,TG 69,TC 155,LDL 85, HDL54.12/21/16 : SOD 137,K 3.5,CL 105,CO2 10,GLU 112,BUN 17,CR 1.00,AST 24,ALT 37, . electrocardiogram01/28/2021 NSR electrocardiogram : EKG ; normal Sinus Rhythmelectrocardiogram 06-27-2019 06/27/2019 : EKG : Normal sinus Rhythm, normalEKG 01/03/19 Normal sinus Rhythm, normal EKG 06/28/18:Sinus rhythm,inverted T wave is aVL.EKG 11/30/17: NSR. WNLEKG 04/22/17 Sinus Rhythm Right atrial enlargement BORDERLINEEK12/20/16 Sinus rhythm. Normal ECG. Had 07/11/19 48 hour Holter Monitor: Unremarkable Holter. NSR. (He had palpitations during the monitor.) US, echocardiogram 07-06-2019 07/06/19 Echo- LV Wall thickness is normal 01/02/20 ART DUP: Mild PVD. 12/02/17 CAROTID: Normal internal carotid arteries. 07/06/19 ECHO: LV wall thickness is normal. LV systolic function is normal. The estimated left ventricle ejection fraction is 55-60%(normal). Right ventricle is top normal in size with normal systolic function. There is no aortic valve stenosis. There is no mitral regurgitation. There is trace tricuspid regurgitation. US, carotid artery CAROTID: Normal internal carotid arteries. holter monitor Holter Monitor: Unremarkable holter. NSR Had 07/03/19 UBALDO (ankle brachial index): Calcified non-compressible lower extremity arteries on the left. Right leg normal. US, doppler, arterial 07-03-2019 07/03/19 Doppler- Abn. ankle brachial index. Calcified non-compressible lower extremity arteries. SE: 12/21/16 No echocardiographic evidence of ischemia. No ECG evidence of ischemia. No exercise induced chest pain. No significant exercise induced arrhythmias. Above average exercise capacity. Carotid: 12/21/16 <50% stenosis from minimal plaque in the right internal carotid artery. CT BRAIN W/O: 12/20/16 Normal brain. 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 If there are any prior chest x-rays or gross-sectional imaging at outside institution, recommend obtaining and comparing to the exam. Otherwise consider 3-6 month follow up thoracic MRI. Mild thoracic spondylosis. 12/21/16 CTA CHEST/ABDOMEN/PELVIS: Normal caliber thoracic and abdominal aorta with no aneurysm or dissection. Nonspecific 2.7x 1.7x 1.6 cm pleural versus subpleural left para spinal nodule posterior to the descending aorta at the level of T6-T7. Differential would include neurogenic tumor such as schwannoma, neurofibroma,ganglima or paraganglioma,foregut duplication cyst or less likely malignancy such as lymphoma or least likely primary sarcoma. The location in very close proximity to the posterior margin of the aorta would be problematic for percutaneous biopsy. The lesionis subtly visible on the lateral chest radiograph from one day prior and would recommend correlation with any prior outside imaging to assess for chronicity. If prior imaging unavailable for would consider further evaluation with pre-and postcontrast thoracic spine MRI. CT, brain, w/o contrast 12-20-2016 CT brain W/O: 12/20/16 Normal brain. Michael Jennings [place], [place] - [facility] 11/25/2021 13:54:57 3 text/html 07/17/2022 CC : Follow-up Palpitation 62 year-old white man with h/o PAD, carotid artery stenosis, hyperlipidemia, former tobacco use (quit 2010, 30 pack-year), GASPER (on CPAP), left paraspinal mass (stable), is here for follow up palpitations. Previously, he was in [facility] in 12/21/16 because of Chest pain. He ruled out for AR by serial trop-I. Had negative SE done in 12/21/16. Patient reports feeling well overall. Patient is active, exercising regularly with tennis and walking. He sprained ankle. Reports BP not assessed. Reported no exertional chest pain, with rare occasional tenderness bilateral chest, with bilateral pleuritic discomfort for 1-2 seconds. No arm pain. No neck pain. No nausea and vomiting. No diaphoresis. No shortness of breath at rest. No dyspnea on exertion. No fatigue. No orthopnea. Rare PND with CPAP. No leg swelling. Reports rare palpitations for 1-2 seconds only, worse with caffeine and stress. Reports resolution of dizziness with walking. No syncope. No pre-syncope. Reports stable infrequent claudication with occasional leg pain with walking. No major bleeding events. No side effects from medications. Complete ROS negative except as stated in the HPI and ROS. Reports snoring. Previously, Reports daytime somnolence, AM headaches, fatigue, and does not feel well rested. Sleep study completed on 01/14/17 with mild GASPER. Reports snoring. Previously, reports normal home sleep study 3 years ago. Reports daytime somnolence, AM headaches, fatigue, and does not feel well rested. Sleep study completed on 01/14/17 with mild GASPER. Had Stress echo: 12/21/16 No echocardiographic evidence of ischemia. No ECG evidence of ischemia. No exercise induced chest pain. No significant exercise induced arrhythmias. Above average exercise capacity. Had ECHO done in 07/06/19 showed LV systolic function is normal , EF 55-60%, Right ventricle is top normal in size with normal systolic function. There is no aortic valve stenosis. There is no mitral regurgitation. There is trace tricuspid regurgitation. Had 07/11/19 48 hour Holter Monitor: Unremarkable Holter. NSR. (He had palpitations during the monitor.) Had 01/02/20 ART DUP: Mild PVD. Had 07/03/19 UBALDO (ankle brachial index): Calcified non-compressible lower extremity arteries on the left. Right leg normal. Had US, carotid artery 12/11/21:Antegrade flow noted in both vertebral arteries. Very mild right internal carotid artery stenosis with less than 15% diameter stenosis. Mild left internal carotid artery stenosis with less than 50% diameter stenosis. Results from this visit, or from the past: Had 07/02/22 CMP: GL 112, BUN 15, CR 1.06, EGFR 79, NA 140, K 4.3, CL 106, CO2 29, CA 8.8, AST 14, ALT 14, LIPID: CH 163, HDL 50, TR 69, LDL 97, CBC: WBC 5.1, RBC 4.39, HGB 13.5, HCT 39.7, PLT 172, TSH 1.29, PSA 0.53, MG 2.1 03/03/22 LIPID: CH 154, HDL 51, TR 107, LDL 83, CMP: GL 94, BUN 13, CR 1.18, NA 141, K 4.2, CL 107, CO2 30, CA 9.1, AST 15, ALT 14, MG 2.1, TSH 1.29, CBC: WBC 5.2, RBC 4.22, HGB 13.0, HCT 38.0, PLT 192, Had 11/01/21: Cr 1.05, K 4.1, LDL 91 lipid panel, blood [id number] PANEL; Cholesterol-181, HDL-59, Triglyceride-80, LDLs-105 CMP; Glucose- 102, Had 03/07/21: LDL 105, Cr 1.13, K 4.5, Mg 2.0, CPK 77 Had 10/25/20: LDL 121, Cr 1.05, K 4.3, hgb 13.8, TSH 1.09 CMP 11/04/2019GL 87 BUN 17 CR 1.07 NA 141 K 4.1 CH 106 CO2 29 CA 9.1 AST 21 ALT 22 ALK PH 78 LIPID 11/04/2019 CH 169 HDL 50 TR 78 LDL 102 lipid panel, blood 07-21-2019 07/21/19 LIPID: TC 180, TR 65, HDL 63, LDL 102 CMP, serum or plasma 07-21-2019 07/21/2019 Glucose 98,BUN 15,Creati 0.99,Na 144,K 4.5,Cl 105,Ca 9.2,AST 20,ALT 18,Alkaline phosphatase 81,Ca 9.2, CPK 150 normal, normal TSH and Mg. 06-27-2019 06/27/2019 Creatine: 80LIPID 06/14/2019 CH 301 HDL 53 TR 99 LDL 235 06/23/18: TC 178 ,TG 108, HDL 66 ,LDL 92,AST 22,ALT 26,02/05/17:NA 140,K 4.4,CL 104,CO2 28,GLU 99,BUN 14,CR 1.10,AST 15,ALT 15,TG 69,TC 155,LDL 85, HDL54.12/21/16 : SOD 137,K 3.5,CL 105,CO2 10,GLU 112,BUN 17,CR 1.00,AST 24,ALT 37, . electrocardiogram [id number] electrocardiogram01/28/2021 NSR electrocardiogram : EKG ; normal Sinus Rhythmelectrocardiogram 06-27-2019 06/27/2019 : EKG : Normal sinus Rhythm, normalEKG 01/03/19 Normal sinus Rhythm, normal EKG 06/28/18:Sinus rhythm,inverted T wave is aVL.EKG 11/30/17: NSR. WNLEKG 04/22/17 Sinus Rhythm Right atrial enlargement BORDERLINEEK12/20/16 Sinus rhythm. Normal ECG. US, carotid artery 12-11-2021:Antegrade flow noted in both vertebral arteries. Very mild right internal carotid artery stenosis with less than 15% diameter stenosis. Mild left internal carotid artery stenosis with less than 50% diameter stenosis. Had 07/11/19 48 hour Holter Monitor: Unremarkable Holter. NSR. (He had palpitations during the monitor.) US, echocardiogram 07-06-2019 07/06/19 Echo- LV Wall thickness is normal 01/02/20 ART DUP: Mild PVD. 12/02/17 CAROTID: Normal internal carotid arteries. 07/06/19 ECHO: LV wall thickness is normal. LV systolic function is normal. The estimated left ventricle ejection fraction is 55-60%(normal). Right ventricle is top normal in size with normal systolic function. There is no aortic valve stenosis. There is no mitral regurgitation. There is trace tricuspid regurgitation. US, carotid artery CAROTID: Normal internal carotid arteries. holter monitor Holter Monitor: Unremarkable holter. NSR Had 07/03/19 UBALDO (ankle brachial index): Calcified non-compressible lower extremity arteries on the left. Right leg normal. 07/03/19 Doppler- Abn. ankle brachial index. Calcified non-compressible lower extremity arteries. SE: 12/21/16 No echocardiographic evidence of ischemia. No ECG evidence of ischemia. No exercise induced chest pain. No significant exercise induced arrhythmias. Above average exercise capacity. Carotid: 12/21/16 <50% stenosis from minimal plaque in the right internal carotid artery. CT BRAIN W/O: 12/20/16 Normal brain. 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 If there are any prior chest x-rays or gross-sectional imaging at outside institution, recommend obtaining and comparing to the exam. Otherwise consider 3-6 month follow up thoracic MRI. Mild thoracic spondylosis. 12/21/16 CTA CHEST/ABDOMEN/PELVIS: Normal caliber thoracic and abdominal aorta with no aneurysm or dissection. Nonspecific 2.7x 1.7x 1.6 cm pleural versus subpleural left para spinal nodule posterior to the descending aorta at the level of T6-T7. Differential would include neurogenic tumor such as schwannoma, neurofibroma,ganglima or paraganglioma,foregut duplication cyst or less likely malignancy such as lymphoma or least likely primary sarcoma. The location in very close proximity to the posterior margin of the aorta would be problematic for percutaneous biopsy. The lesionis subtly visible on the lateral chest radiograph from one day prior and would recommend correlation with any prior outside imaging to assess for chronicity. If prior imaging unavailable for would consider further evaluation with pre-and postcontrast thoracic spine MRI. CT, brain, w/o contrast 12-20-2016 CT brain W/O: 12/20/16 Normal brain. BRIAN [facility] - [facility] 07/17/2022 11:35:32
--- OUTSIDE RECORDS SUMMARY | 2024-10-18 04:09 | XMS_ITS | Referral Summary ---
Author Organization [facility] Address [address] [place] [address] Care Team Providers Care Review Consultant Name Role Phone Cindy Vela DO Primary Care Provider +- [phone] Cindy Vela DO Unavailable [phone] Allergies No known active allergies Medications aspirin [...] different from the original. Referring provider: Dr. 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 file Not on file N ot on file Last Filed Vital Signs Vital Sign Reading Time Taken Comments Blood Pressure 112/82 05/31/2024 10:32 AM OPERATIONAL RISK ANALYST Pulse 70 05/31/2024 10:32 AM OPERATIONAL RISK ANALYST Temperature 36.4 C (97.6 F) 02/03/2024 1:07 PM CDT Respiratory Rate 18 05/31/2024 10:32 AM OPERATIONAL RISK ANALYST Oxygen Saturation 98% 05/31/2024 10:32 AM OPERATIONAL RISK ANALYST Inhaled Oxygen Concentration - - Weight 86.2 kg (190 lb 1.6 oz) 05/31/2024 10:32 AM OPERATIONAL RISK ANALYST Height 180.3 cm (5' 11) 05/31/2024 10:32 AM OPERATIONAL RISK ANALYST Body Mass Index 26.51 05/31/2024 10:32 AM OPERATIONAL RISK ANALYST Plan of Treatment Not on file Procedures Procedure Name Priority Date/Time Associated Diagnosis Comments CT LUNG CANCER SCREENING Schedule Routine, Read Routine (OP Routine) 05/16/2024 9:50 AM OPERATIONAL RISK ANALYST Personal history of nicotine dependence from Last 3 Months or Most Recently Relevant to Health Maintenance Results * CT Lung Cancer Screening (05/16/2024 9:50 AM OPERATIONAL RISK ANALYST) Anatomical Region Laterality Modality Chest N/A Computed Tomogra phy 05/16/2024 10:2 5 AM OPERATIONAL RISK ANALYST Impressions 05/16/2024 10:49 AM OPERATIONAL RISK ANALYST 1. LungRADS Category 2 (benign) . Recommend [...] Sachin Okeefe M.D. Narrative 05/16/2024 10:49 AM OPERATIONAL RISK ANALYST EXAMINATION: Lung cancer screening CT of the [...] by: Sachin Okeefe M.D. Cindy Vela DO IMG CT PROCEDURES Final Re sult from Last 3 Months or Most Recently Relevant to Health Maintenance [place] [address] [place] [id number] [place] [id number] Care Teams Review Consultant Relationship Specialty Start Date End Date Cindy Vela DO PCP - General Family Medicine 03/18/23 Cindy Vela DO Family Medicine 03/18/23
--- NOTE | 2024-10-18 04:10 | ECG_ITS ---
Test Date: 2024-10-18 04:17:38 Measurements Intervals [place] Rate: 110 P: 68 W[place]: 166 QRS: 56 QRSD: 108 T: 54 QT: 324 QTc: 440 Interpretive Statements SINUS TACHYCARDIA No previous ECG available for comparison Electronically Signed On 10-18-2024 16:39:49 CDT by Jyothi Garcia M.D.
[2024-10-18 04:21] VITALS: PULSE 96
[2024-10-18 04:33] LABS: Basophils Percent Auto 0.4 % (0.2-1.2); Eosinophils Percent Auto 0.5 % (0-4.4); Hematocrit 43.3 % (42.0-52.0); Hemoglobin 14.9 g/dL (14.0-18.0); Immature Granulocyte Absolute 0.02 K/mm3 (0.00-0.031); Immature Granulocyte Percent A 0.3 % (0-0.5); Lymphocytes Absolute Auto 1.71 K/mm3 (0.9-3.2); Mean Corpuscular HGB Conc 34.4 g/dl (32-36); Mean Corpuscular Hemoglobin 31.3 pg (26-34); Mean Platelet Volume 8.9 fl (7.4-10.4); Monocytes Absolute Auto 0.4 K/mm3 (0.1-0.6); Monocytes Percent Auto 4.6 % (2.6-8.5); Neutrophils Absolute Auto 5.6 K/mm3 (1.3-6.7); Neutrophils Percent Auto 72.2 % (45.5-73.1); Platelet Count Result 215 k/mm3 (150-375); Red Blood Count 4.76 M/mm3 (4.6-6.20); Red Cell Distribution Width 12.7 % (11.5-14.5); White Blood Count 7.8 K/mm3 (4.5-10.0)
--- OUTSIDE RECORDS SUMMARY | 2024-10-18 04:36 | XMS_ITS | Encounter Summary ---
Author Organization [facility] Address [address] [place] [address] Phone Care Team Providers Care Sash Repairer Name Role Phone Cindy Vela DO Primary Care Provider [phone] Cindy Vela DO Primary Care Provider + [phone] Cindy Vela DO Unavailable [phone] Encounter Details Date Type Department Care Team (Latest Contact Info) Description 11/05/2020 Orders Only [facility] Scanning, Provider Social History Tobacco Use Types Packs/Day Years Used Date Smoking Tobacco: Never Assessed Sex and Gender Information Value Date Recorded Sex Assigned at Not on file 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
--- OUTSIDE RECORDS SUMMARY | 2024-10-18 04:37 | XMS_ITS | Clinical Summary ---
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 Not on file N ot on file Obstetrics History Last Filed Vital Signs Vital Sign Reading Time Taken Comments Blood Pressure 112/82 05/31/2024 10:32 AM KNUCKLE BENDER Pulse 70 05/31/2024 10:32 AM KNUCKLE BENDER Temperature 36.4 C (97.6 F) 02/03/2024 1:07 PM CDT Respiratory Rate 18 05/31/2024 10:32 AM KNUCKLE BENDER Oxygen Saturation 98% 05/31/2024 10:32 AM KNUCKLE BENDER Inhaled Oxygen Concentration - - Weight 86.2 kg (190 lb 1.6 oz) 05/31/2024 10:32 AM KNUCKLE BENDER Height 180.3 cm (5' 11) 05/31/2024 10:32 AM KNUCKLE BENDER Body Mass Index 26.51 05/31/2024 10:32 AM KNUCKLE BENDER Plan of Treatment Health Maintenance Due Date [...] Read Routine (OP Routine) 05/16/2024 9:50 AM KNUCKLE BENDER Personal history of nicotine dependence from Last 3 Months or Most Recently Relevant to Health Maintenance Results * CT Lung Cancer Screening (05/16/2024 9:50 AM KNUCKLE BENDER) Anatomical Region Laterality Modality Chest N/A Computed Tomogra phy 05/16/2024 10:2 5 AM KNUCKLE BENDER Impressions 05/16/2024 10:49 AM KNUCKLE BENDER 1. LungRADS Category 2 (benign) . Recommend [...] Sachin Okeefe M.D. Narrative 05/16/2024 10:49 AM KNUCKLE BENDER EXAMINATION: Lung cancer screening CT of the [...] Sachin Okeefe M.D. Cindy Vela DO [facility] [place] PROCEDURES Final Re sult from Last 3 Months or Most Recently Relevant to Health Maintenance Insurance [facility] [id number] [address] [facility] [id number] Care Teams Screen Tacker Relationship Specialty Start Date End Date Cindy Vela DO PCP - General Family Medicine 03/18/23 Cindy Vela DO Family Medicine 03/18/23
--- OUTSIDE RECORDS SUMMARY | 2024-10-18 04:37 | XMS_ITS | Referral Summary ---
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 Not on file N ot on file Last Filed Vital Signs Vital Sign Reading Time Taken Comments Blood Pressure 112/82 05/31/2024 10:32 AM TOPOGRAPHICAL DRAFTER Pulse 70 05/31/2024 10:32 AM TOPOGRAPHICAL DRAFTER Temperature 36.4 C (97.6 F) 02/03/2024 1:07 PM CDT Respiratory Rate 18 05/31/2024 10:32 AM TOPOGRAPHICAL DRAFTER Oxygen Saturation 98% 05/31/2024 10:32 AM TOPOGRAPHICAL DRAFTER Inhaled Oxygen Concentration - - Weight 86.2 kg (190 lb 1.6 oz) 05/31/2024 10:32 AM TOPOGRAPHICAL DRAFTER Height 180.3 cm (5' 11) 05/31/2024 10:32 AM TOPOGRAPHICAL DRAFTER Body Mass Index 26.51 05/31/2024 10:32 AM TOPOGRAPHICAL DRAFTER Plan of Treatment Not on file Procedures Procedure Name Priority Date/Time Associated Diagnosis Comments CT LUNG CANCER SCREENING Schedule Routine, Read Routine (OP Routine) 05/16/2024 9:50 AM TOPOGRAPHICAL DRAFTER Personal history of nicotine dependence from Last 3 Months or Most Recently Relevant to Health Maintenance Results * CT Lung Cancer Screening (05/16/2024 9:50 AM TOPOGRAPHICAL DRAFTER) Anatomical Region Laterality Modality Chest N/A Computed Tomogra phy 05/16/2024 10:2 5 AM TOPOGRAPHICAL DRAFTER Impressions 05/16/2024 10:49 AM TOPOGRAPHICAL DRAFTER 1. LungRADS Category 2 (benign) . Recommend [...] Sachin Okeefe M.D. Narrative 05/16/2024 10:49 AM TOPOGRAPHICAL DRAFTER EXAMINATION: Lung cancer screening CT of the [...] Most Recently Relevant to Health Maintenance [place] [address] [place] [id number] [place] [id number] Care Teams Dental Floss Packer Relationship Specialty Start Date End Date Cindy Vela DO PCP - General Family Medicine 03/18/23 Cindy Vela DO Family Medicine 03/18/23
[2024-10-18 04:45] VITALS: BP 142/86; PULSE 89; RESP 11; O2SAT 100
[2024-10-18 04:45] LABS: Alanine Aminotransferase 36 U/L (6-50); Albumin Level 4.9 g/dL (3.5-5.1); Alkaline Phosphatase 105 U/L (38-126); Anion Gap 15 mmol/L (4-12); Aspartate Amino Transferase 38 U/L (17-59); Bilirubin,Total 1.1 mg/dL (0.2-1.3); Blood Urea Nitrogen 11 mg/dL (9-20); Calcium 9.5 mg/dL (8.4-10.2); Carbon Dioxide 20 mmol/L (22-30); Chloride 102 mmol/L (98-107); Estimated CRCL calculation 71 ml/min; Estimated Glomerular Filt Rate > 60; Glucose 143 mg/dL (65-110); Potassium 3.6 mmol/L (3.4-5.0); Sodium 137 mmol/L (137-145)
[2024-10-18 05:00] VITALS: BP 140/83; PULSE 79; RESP 13; O2SAT 95
[2024-10-18 05:06] LABS: Troponin I < 0.012 ng/mL (0.000-0.034)
--- NOTE | 2024-10-18 05:08 | ED_ITS ---
HPI - Arrhythmia/Palpitations General Chief Complaint: Arrhythmia/Palpitations Stated Complaint: rapid heart beat' Time Seen by Provider: 10/18/24 04:33 History of Present Illness HPI narrative: 64-year-old male with a past medical history including hypertension, hyperlipidemia. Patient presents to the emergency department for complaints of palpitations for several days. He states that he wears a Fitbit watch and notes that his heart rate has been elevated occasionally after walking around and sometimes even at rest. He states he got up to 145 beats per minute and feels like he might have skips a beat. No history of arrhythmia or AFib/flutter. Does not taking anticoagulation medications. Presently not having any symptoms but was concerned and came to the ER for evaluation. He states he has not had any new changes in his life for regimen and still uses a CPAP for GASPER but not have any respiratory complaints. No chest pain shortness a breath at this time. No palpitations here in the emergency department. No fever, chills, thyroid issues, abdominal pain, back pain. States that he sees a automobile mechanic for a PFO but otherwise has no cardiac history. Not on any rate controlling medications. Related Data Home Medications ?Medication ?Instructions ?Recorded ?Confirmed ?Last Taken ?Type aspirin 81 mg tablet,delayed 81 mg PO DAILY 05/29/19 10/03/24 08/20/20 History release rosuvastatin 40 mg tablet 40 mg PO DAILY 06/09/22 10/03/24 Unknown History Allergies Allergy/AdvReac Type Severity Reaction Status Date / Time No Known Allergies Allergy Verified 10/18/24 04:15 Review of Systems 2 Review of Systems: As reviewed above in HPI [facility] Past Medical History Medical History Right wrist tendinitis Piriformis syndrome of left side Lateral epicondylitis of right elbow GASPER (obstructive sleep apnea) Hyperlipidemia GERD without esophagitis Mixed hyperlipidemia Anxiety Abnormal colonoscopy Family History Family History Mother Family history of glaucoma Hypertension Family history of elevated blood lipids Carcinoma of colon Family history of coronary artery disease Cerebrovascular accident Pulmonary emboli Father Hypertension Family history of elevated blood lipids Social History Social History Social History: Caffeine-daily Smoking packs per day: 1 Smoking cigarettes per day: 20.0 Years smoked: 34 Smoking pack-years: 34.00 Smoking status: Former smoker Tobacco type: cigarettes Smoking end date: 05/24/10 Alcohol intake: never Substance use: never Substance use type: does not use Current Housing: Decline to Answer Concerned About Future Housing: Decline to Answer Difficulty Paying Gas/Electric Bills: Decline to Answer Difficulty Paying for Meds: Decline to Answer Currently Unemployed: Decline to Answer Education: Decline to Answer Difficulty w/ Childcare or Family Care: Decline to Answer Living arrangements: with family Gender identity (if verbalized by the patient): Male Spiritual care concerns: No Exam 2 Narrative: GENERAL: [Well-appearing, well-nourished, and in no acute distress.] HEAD: [Normocephalic, atraumatic.] EYES: [PERRLA and EOMI.] ENT: Nares clear, no rhinorrhea or epistaxis. Mucous membranes moist. NECK: Supple. CHEST: [Clear to auscultation. No respiratory distress.] HEART: [Regular rate and rhythm]. No murmur heard. [Normal peripheral pulses.] ABDOMEN: [Soft, nondistended], [nontender], [No rigidity or guarding] EXTREMITIES: Normal range of motion. [No edema.] SKIN: Warm, dry, no rash. NEURO: [No focal deficits]. Alert and oriented [x3.] PSYCH: [Normal mood and affect.] Course Vital Signs Vital signs: Vital Signs Temperature 36.8 C 10/18/24 04:09 Pulse Rate 112 H 10/18/24 04:09 Respiratory Rate 20 10/18/24 04:09 Blood Pressure 156/92 H 10/18/24 04:09 Pulse Oximetry 100 10/18/24 04:09 Oxygen Delivery Room Air 10/18/24 04:09 Temperature 36.8 C 10/18/24 04:09 Pulse Rate 79 10/18/24 05:00 Respiratory Rate 13 10/18/24 05:00 Blood Pressure 140/83 10/18/24 05:00 Pulse Oximetry 95 10/18/24 05:00 Oxygen Delivery Room Air 10/18/24 04:09 MDM - Arrhythmia/Palpitations MDM Narrative Medical decision making narrative: 64-year-old male with history of hypertension hyperlipidemia presenting to the emergency department for elevated heart rate and intermittent palpitations. He states that symptoms going on for several days and intermittent in nature. Occasional lightheadedness with the elevated heart rate but this is short-lived. He states that he occasionally feels like his heart is skipping beats. He wears a smart watch which shows that he has been having heart rates in the 110s and 1 episode 145 beats per minute. No present symptomatology and states that he feels fine but was concerned about the changes as heart rate so he came to the ER for evaluation. Has never been evaluated for palpitations before. He has no chest pain, shortness a breath, abdominal pain, back pain, fever, chills. Vital signs show some stable hypertension but no severe range or tachycardia fever hypoxia or tachypnea. Strong symmetric pulses throughout, warm extremities and reassuring neurovascular examination. Suspicion presently is for potential anxiety, electrolyte disturbances, dehydration, low suspicion cardiac pathology such as ACS or new onset dysrhythmia such as AFib/flutter/nonsustained V-tach. Patient placed on rn cardiac and observed here in the emergency department while workup underway including CBC, CMP, TSH, chest x-ray, EKG and troponin. Patient was given a fluid bolus and re-evaluated. Discussed with the patient next steps after ER evaluation with potential outpatient Holter monitoring assuming safe discharge home with reassuring workup. Patient comfortable with this plan and will be re-evaluated frequently on telemetry here in the ED. Patient's workup was reassuring. No leukocytosis or anemia. Normal TSH. Negative troponin. Normal electrolytes. Normal kidney function. Normal LFTs. Mildly elevated glucose 143 but not significant. Chest x-ray without any acute findings. EKG with sinus tachycardia rate 110. Patient's heart rate is 79 beats per minute presently he is not had any significant ectopy on the groundwater monitoring technician were symptoms while here in the ED. Discussed next steps with Cardiology evaluation outpatient and potential Holter monitor which patient verbalized understanding and was given strict return precautions as well prior to safe discharge home. Medical Records Attestation: I reviewed the patient's medical records. Lab Data Attestation: I reviewed the patient's lab results. 10/18/24 04:23 10/18/24 04:23 Labs: Lab Results 10/18/24 Range/Units 04:23 WBC 7.8 (4.5-10.0) K/mm3 RBC 4.76 (4.6-6.20) M/mm3 Hgb 14.9 (14.0-18.0) g/dL Hct 43.3 (42.0-52.0) % MCV 91.0 (80-100) fl MCH 31.3 (26-34) pg MCHC 34.4 (32-36) g/dl RDW 12.7 (11.5-14.5) % Plt Count 215 (150-375) k/mm3 MPV 8.9 (7.4-10.4) fl Immature Gran % (Auto) 0.3 (0-0.5) % Neut % (Auto) 72.2 (45.5-73.1) % Lymph % (Auto) 22.0 (18.3-44.2) % [place] % (Auto) 4.6 (2.6-8.5) % Eos % (Auto) 0.5 (0-4.4) % Baso % (Auto) 0.4 (0.2-1.2) % Lymph # (Auto) 1.71 (0.9-3.2) K/mm3 [place] # (Auto) 0.4 (0.1-0.6) K/mm3 Eos # (Auto) 0.0 (0-0.3) K/mm3 Baso # (Auto) 0.0 (0.0-0.1) K/mm3 Abs Immat Gran (auto) 0.02 (0.00-0.031) K/mm3 Absolute Neuts (auto) 5.6 (1.3-6.7) K/mm3 Absolute Nucleated RBC 0.000 (0.0-0.012) K/mm3 Nucleated RBC % 0.0 (0.0-0.2) % Sodium 137 (137-145) mmol/L Potassium 3.6 (3.4-5.0) mmol/L Chloride 102 (98-107) mmol/L Carbon Dioxide 20 L (22-30) mmol/L Anion Gap 15 H (4-12) mmol/L BUN 11 (9-20) mg/dL Creatinine 0.96 (0.7-1.3) mg/dL Estim Creat Clear Calc 71 ml/min Estimated GFR > 60 (59 - ) Glucose 143 H (65-110) mg/dL Calcium 9.5 (8.4-10.2) mg/dL Total Bilirubin 1.1 (0.2-1.3) mg/dL AST 38 (17-59) U/L ALT 36 (6-50) U/L Alkaline Phosphatase 105 (38-126) U/L Troponin I < 0.012 (0.000-0.034) ng/mL Total Protein 8.0 (6.3-8.2) g/dL Albumin 4.9 (3.5-5.1) g/dL TSH 0.924 (0.465-4.680) uIU/mL Imaging Data Attestation: I personally reviewed and interpreted this imaging study as follows: My impression: Impressions Chest X-Ray 10/18/24 05:26 Impression: Normal chest. ECG Data EKG #1: Attestation: I personally reviewed and interpreted this ECG as follows: ECG completion date: 10/18/24 ECG completion time: 04:17 Prior ECG tracings: not available for review Interpretation: Sinus tachycardia rate 110 beats per minute, QTC 440, NM interval 166, QR interval 108. No ST segment elevations, depressions or inversions. Appear sinus rhythm without any previous EKG for comparison. Discharge Plan Discharge Clinical Impression: Heart palpitations Patient Disposition: Home Condition: Stable Instructions: Antibiotic Form, Heart Palpitations (DC) Additional Instructions: Your cardiac workup here was very reassuring. Your thyroid studies are normal, electrolytes are normal, kidney and liver function are normal, heart enzyme is negative. Your EKG and chest x-ray are reassuring. Your palpitations need to be further investigated on outpatient basis with your automobile mechanic and they will likely such a with a Holter monitor. Contact them this morning for outpatient evaluation and to get this set up with them. Return with any emergent concerns or any persistent symptoms. Patient Language: Jamaican Prescriptions: No Action aspirin 81 mg tablet,delayed release (DR/EC) 81 mg PO DAILY rosuvastatin 40 mg tablet 40 mg PO DAILY ergocalciferol (vitamin D2) [Vitamin D2] 1,250 mcg (50,000 unit) capsule 1,250 mcg PO WEEKLY Qty: 12 1RF naproxen 500 mg tablet 500 mg PO BID PRN (Reason: pain) Qty: 60 3RF omeprazole 20 mg capsule,delayed release(DR/EC) 20 mg PO BID Qty: 180 1RF Follow-up/Referrals: Cindy Vela DO [Primary Care Provider] - Time of Disposition: 06:17
[2024-10-18 05:24] LABS: Thyroid Stimulating Hormone 0.924 uIU/mL (0.465-4.680)
[2024-10-18 06:40] VITALS: BP 117/86; PULSE 80; RESP 16; O2SAT 100
== END 2024-10-18 06:43 | disposition home or self-care (01) ==
PROVIDERS: Emergency Provider Student in an Organized Health Care Education/Training Program; PCP Family Medicine
DX: R00.2 Palpitations (principal); I10 Essential (primary) hypertension; E78.2 Mixed hyperlipidemia; K21.9 Gastro-esophageal reflux disease without esophagitis; G47.33 Obstructive sleep apnea (adult) (pediatric); F41.9 Anxiety disorder, unspecified; Z87.891 Personal history of nicotine dependence; R00.0 Tachycardia, unspecified; Z79.82 Long term (current) use of aspirin; Z79.899 Other long term (current) drug therapy
CPT/HCPCS: 36415; 71046; 80053; 84443; 84484; 85025; 93005; 99284

== ENCOUNTER 2024-12-22 07:52 | Outpatient (CLI) | payer OTHER, SELFPAY ==
--- NOTE | ~2024-12-22 | CT_ITS ---
EXAMINATION: CTA brain DATE: 12/22/2024 08:54 INDICATION: Right ear pulsatile tinnitus TECHNIQUE: Computed tomographic angiography (CTA) of the head was performed without and with 100 mL O mnipaque-350 intravenous contrast. Volume-rendered and maximum intensity projection 3D reconstruction s of the intracranial arteries were created by the technologist on a separate workstation. Automated exposure control and iterative reconstruction technique were employed. The dose-length product was 10 77.97 mGy-cm. COMPARISON: None. FINDINGS: No acute intracranial hemorrhage, acute infarction or abnormal extra axial fluid collection. Ventricl es are normal and symmetric. No mass/mass effect. No abnormally enhancing brain lesions. The orbits, paranasal sinuses and mastoid air cells are normal. The vertebral arteries are codominant. There is no hemodynamically significant stenosis in the verteb ral, basilar and internal carotid arteries. There are no aneurysms identified. Both A1 and P1 segment s are patent. There are also a patent anterior communicating and bilateral posterior communicating ar teries, diminutive on the left. Cerebral arterial arborization appears symmetric. Bilateral carotid c anals and jugular bulbs appear unremarkable. IMPRESSION: 1. Unremarkable head CT and cerebral CT angiogram with no evident etiology of reported pulsatile tinn itus. Reviewed, dictated and finalized at location A. IMPRESSION: 1. Unremarkable head CT and cerebral CT angiogram with no evident etiology of r eported pulsatile tinnitus.
--- OUTSIDE RECORDS SUMMARY | 2024-12-22 07:56 | XMS_ITS | Encounter Summary ---
Author Organization [facility] Healthcare Address [address] [place] [address] Care Team Providers Care Brazing Machine Operator Automatic Name Role Phone Cindy Vela DO Primary Care Provider [phone] MirianCindy Unavailable [phone] Encounter Details Date Type Department Care Team (Late st Contact Info) Description 12/13/2024 Results Follow-Up [facility] Cardiology [address] [address] Lili White, SENIOR DATA MINING ANALYST [address] [place] [place] [address] CBC with auto differential, Thyroid Function [place], Lipid panel, Additional followed-up results: 2 Social History Tobacco Use Types Packs/Day Years [...] on file Legal Sex 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 Will discuss in greater detail at upcoming appt documented in this encounter Plan of Treatment Not on file documented as of this encounter Visit Diagnoses Not on filedocumented in this encounter Care Teams Brazing Machine Operator Automatic Relationship Specialty Start Date End Date Cindy Vlea DO PCP - General Family Medicine 03/18/23 Cindy Vela DO Family Medicine 03/18/23 documented as of this encounter
--- OUTSIDE RECORDS SUMMARY | 2024-12-22 07:57 | XMS_ITS | Encounter Summary ---
Author Organization [facility] Address [address] [place] [address] Phone Care Team Providers Care Tongue And Groove Machine Operator Name Role Phone Cindy Vela DO Primary Care Provider [phone] Cinyd Vela DO Primary Care Provider [phone] Cindy Vela DO Unavailable [phone] Encounter Details Date Type Department Care Team (Latest Contact Info) Description 11/05/2020 Orders Only [facility] Scanning, Provider Social History Tobacco Use Types Packs/Day Years Used Date Smoking Tobacco: Never Assessed Sex and Gender Information Value Date Recorded Sex Assigned at Not on file 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
--- OUTSIDE RECORDS SUMMARY | 2024-12-22 07:57 | XMS_ITS | Referral Summary ---
Author Organization [facility] Address [address] [place] [address] Care Team Providers Care Outpatient Receptionist Name Role Phone KaidenbebaCindy devi Primary Care Provider [phone]- [phone] Cindy Vela DO Unavailable [phone] Encounters Date Type Department Care Team Description 12/15/2024 9:30 AM CDT Office Visit [facility] Cardiology [address] [place] [phone] Michael Jennings MD Peripheral arterial disease (Primary Dx); Bilateral carotid artery stenosis; Mixed hyperlipidemia; Intermittent claudication; Patent foramen ovale; Dizziness; Palpitations; Precordial chest pain; Exertional dyspnea; Coronary artery calcification seen on CT scan; Obstructive sleep apnea 12/13/2024 Results Follow-Up [facility] Cardiology [address] [place] [address] [place] [phone] Lili White NP CBC with auto differential, Thyroid Function [place], Lipid panel, Additional followed-up results: 2 12/11/2024 Orders Only [facility] Cardiology [address] [place] [phone] Michael Jennings MD 10/25/2024 1:30 PM CDT - 10/25/2024 11:59 PM CDT Hospital Encounter [facility] OP Cardiac Testing [address] [place] [address] Palpitations; Patent foramen ovale; Bilateral carotid artery stenosis; Peripheral arterial disease Discharge Disposition: Discharge to home or self care 10/25/2024 1:15 PM CDT Clinical Support [facility] Cardiology [address] [place] [address] [address] [place] [address] Palpitations (Primary Dx) 10/19/2024 Telephone [facility] Cardiology [address] [place] [address] [address] [place] [address] Michael Jennings MD from Last 3 Months Allergies No known active allergies Medications aspirin [...] MOUTH EVERYDAY AT BEDTIME 90 tablet 3 04/06/20 24 Active ergocalciferol (VITAMIN D) 50,000 unit capsule Take 1 capsule (50,000 Units total) by mouth once a week 05/09/20 24 Active ezetimibe (ZETIA) 10 mg tablet Take 1 tablet (10 mg total) by mouth daily 90 tablet 3 05/31/19 25 Active metoprolol XL (TOPROL-XL) 25 mg extended release tablet Take 1 tablet (25 mg total) by mouth daily 90 tablet 3 12/16/19 25 Active naproxen (NAPROSYN) 500 mg tablet Take 1 tablet (500 mg total) by mouth 2 (two) times a day 05/09/20 24 025 Discontin ued(Thera py completed ) Active Problems Patient Care Coordination No te Formatting of this note migh t be different from the original. Referring provider: Dr. Cindy Vela Mr. Sachin Kramer is a 60 year old with a [...] are negative. Problem Noted Date Diagnosed Date Coronary artery calcification seen on CT scan Patent foramen ovale 11/17/2023 Precordial chest pain 10/15/2023 Exertional dyspnea 10/06/2023 Lightheadedness 10/06/2023 Periodic limb movement 07/20/2023 Psychophysiological insomnia 06/01/2023 Peripheral arterial disease 04/14/2023 Carotid artery stenosis 04/14/2023 Mixed hyperlipidemia 04/14/2023 Cigarette nicotine dependence in remission 04/14 Obstructive sleep apnea 04/14/2023 Peroneal tendinitis of right lower extremity Benign paraspinal mass 12/30/2020 Multiple pulmonary nodules 11/15/2020 Overview (11/15/2020): Added automatically from request for surgery [id number] Dizziness 06/26/2019 Intermittent claudication 06/26/2019 Palpitations 06/26/2019 [...] on file Legal Sex Male 5:[address]IVER Gender Identity Not on file Sexual Orientation Not on file 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 Not on file N ot on file Last Filed Vital Signs Vital Sign Reading Time Taken Comments Blood Pressure 118/68 12/15/2024 9:33 AM CDT Pulse 80 12/15/2024 9:33 AM CDT Temperature 36.4 C (97.6 F) 02/03/2024 1:07 PM CDT Respiratory Rate 18 05/31/2024 10:[address] DRIVER Oxygen Saturation 98% 12/15/2024 9:33 AM CDT Inhaled Oxygen Concentration - - Weight 83.5 kg (184 lb) 12/15/2024 9:33 AM CDT Height 180.3 cm (5' 11) 12/15/2024 9:33 AM CDT Body Mass Index 25.66 12/15/2024 9:33 AM CDT Plan of Treatment Not on file Procedures Procedure Name Priority Date/Time Associated Diagnosis Comments COMPREHENSIVE METABOLIC PANEL Routine 12/11/2024 8:14 AM CDT MAGNESIUM Routine 12/11/2024 8:14 AM CDT LIPID PANEL Routine 12/11/2024 8:14 AM CDT THYROID FUNCTION CASCADE Routine 12/11/2024 8:14 AM CDT CBC WITH AUTO DIFFERENTIAL Routine 12/11/2024 8:14 AM CDT HOLTER MONITOR 48 HR Routine 10/25/2024 2:01 PM CDT Palpitations Patent foramen ovale Bilateral carotid artery stenosis Peripheral arterial disease ECG 12-LEAD Routine 10/25/2024 1:[address] LUNG CANCER SCREENING Schedule Routine, Read Routine (OP Routine) 05/16/2024 9:[address] DRIVER Personal history of nicotine dependence from Last 3 Months or Most Recently Relevant to Health Maintenance Results * Thyroid Function [place] (12/11/2024 8:14 AM CDT) TSH 1.41 0.40 - 4.50 mIU/L [facility] 12/11/2024 8:14 AM CDT 12/11/2024 8:16 AM CDT us Michael Jennings MD LAB BLOOD ORDERABLES Final Result [facility] [address] [place] [address] * CBC with auto differential (12/11/2024 8:14 AM CDT) WBC 6.3 3.8 - 10.8 Thousand/u L [facility] RBC, POC 4.35 4.20 - 5.80 Million/uL [facility] Hgb 13.9 13.2 - 17.1 g/dL [facility] Hct 41.5 38.5 - 50.0 % [facility] MCV 95.4 80.0 - 100.0 fL [facility] MCH 32.0 27.0 - 33.0 pg [facility] MCHC 33.5 32.0 - 36.0 g/dL [facility] Comment: For adults, a slight decrease in the calculated MCHC value (in the range of 30 to 32 g/dL) is most likely not clinically significant; however, it should be interpreted with caution in correlation with other red cell parameters and the patient's clinical condition. Rdw 12.8 11.0 - 15.0 % [facility] Platelets 186 140 - 400 Thousand/u L [facility] MPV 9.3 7.5 - 12.5 fL [facility] Neutrophils, abs 3,843 1,500 - 7,800 cells/uL [facility] Lymphocytes, abs 1,865 850 - 3,900 cells/uL [facility] Monocyte abs 435 200 - 950 cells/uL [facility] Eosinophils, abs 120 15 - 500 cells/uL [facility] Basophils, abs 38 0 - 200 cells/uL [facility] Neutrophils 61 % [facility] Lymphocyte pct 29.6 % [facility] Monocytes 6.9 % [facility] Eosinophils 1.9 % [facility] Basophils 0.6 % [facility] 12/11/2024 8:14 AM CDT 12/11/2024 8:16 AM CDT Michael Jennings MD LAB BLOOD ORDERABLES Final Result Performing Organization Address [facility]/ZIP Co de Phone Number [facility] [address] [place] [address] * Magnesium (12/11/2024 8:14 AM CDT) Pathologist [facility] Magnesium 2.1 1.5 - 2.5 mg/dL [facility] 12/11/2024 8:14 AM CDT 12/11/2024 8:16 AM CDT Michael Jennings MD LAB BLOOD ORDERABLES Final Result Performing Organization Address [facility] Co de Phone Number [facility] [address] [place] [address] * Lipid panel (12/11/2024 8:14 AM CDT) Cholesterol 136 <200 mg/dL [facility] HDL 56 > OR = 40 mg/dL [facility] Triglycerides 63 <150 mg/dL [facility] LDL 66 mg/dL (calc) [facility] Comment: Reference range: <100 Desirable range <100 mg/dL for primary prevention; <70 mg/dL for patients with CHD or diabetic patients with > or = 2 CHD risk factors. LDL-C is now calculated using the Oxana calculation, which is a validated novel method providing better accuracy than the Friedewald equation in the estimation of LDL-C. Jono KANG et al. JANE. 2013;310(19): 6475-8125 (http://education.SiC Processing/faq/EQF440) Chol/HDL ratio 2.4 <5.0 (calc) [facility] Non-HDL, (LDL+VLDL) 80 <130 mg/dL (calc) [facility] Comment: For patients with diabetes plus 1 major ASCVD risk factor, treating to a non-HDL-C goal of <100 mg/dL (LDL-C of <70 mg/dL) is considered a therapeutic option. 12/11/2024 8:14 AM CDT 12/11/2024 8:16 AM CDT Michael Jennings MD LAB BLOOD ORDERABLES Final Result [facility] [address] [place] [address] * Comprehensive metabolic panel (12/11/2024 8:14 AM CDT) Pathologist [facility] Glucose 94 65 - 99 mg/dL [facility] Comment: Fasting reference interval BUN 15 7 - 25 mg/dL [facility] Creatinine 1.05 0.70 - 1.35 mg/dL [facility]S [facility]one eGFR 79 > OR = 60 mL/min/1.7 3m2 [facility] BUN/creat ratio SEE NOTE: 6 - 22 (calc) [facility]S wlat Barone Comment: Not Reported: BUN and Creatinine are within reference range. Sodium 139 135 - 146 mmol/L [facility] Potassium, pl 4.1 3.5 - 5.3 mmol/L [facility] Chloride 104 98 - 110 mmol/L [facility] CO2 29 20 - 32 mmol/L [facility] Calcium 9.3 8.6 - 10.3 mg/dL [facility] Protein, sr 6.6 6.1 - 8.1 g/dL [facility] Albumin 4.3 3.6 - 5.1 g/dL [facility] GLOBULIN 2.3 1.9 - 3.7 g/dL (calc) [facility] Alb/glob ratio 1.9 1.0 - 2.5 (calc) [facility] Bilirubin, total 0.9 0.2 - 1.2 mg/dL [facility] Alk phos 77 35 - 144 U/L [facility] AST 18 10 - 35 U/L [facility] ALT (SGPT) 23 9 - 46 U/L [facility] 12/11/2024 8:14 AM CDT 12/11/2024 8:16 AM CDT us Michael Jennings MD LAB BLOOD ORDERABLES Final Result Performing Organization Address City/State/[facility] Co de Phone Number [employer] [facility] [address] [place] [address] * 48 HR Holter Monitor (10/25/2024 2:01 PM CDT) Anatomical Region Laterality Modality Ultrasound Narrative 10/31/2024 9:11 AM CDT Patient Id: Sachin Kramer is a 64 y.o. male. MR#: [id number] Date of the procedure: 25 October 2024 Diagnosis: Palpitations Findings: 48 hour Holter done on the 25 October 2024 showed a sinus rhythm at baseline. Artifact noted for 7 hours and 57 minutes. Heart rate varies from 47 beats per minute 131 beats per minute. Average heart rate 72 beats per minute. Rhythm is bradycardia for 21% of the time and tachycardic for 3% of the time. There were 29 PVCs which accounted for less than 1% of total number of beats. There were 71 PACS which accounted for less than 1% total number beats. No atrial fibrillation noted. Patient complained of 4 fluttering and at that time artifact noted but rhythm appears to be sinus rhythm most of the time. Patient triggered the monitor 8 times and at that time rhythm is essentially normal and no major arrhythmia noted. During minimum maximum heart rate rhythm is sinus rhythm. Longest RR interval is 1.3 seconds. No ventricular or supraventricular tachycardia noted Copy to Cindy Vela DO 10/31/2024 Michael Jennings MD CV CARDIAC SERVICES PROCED URES Final Result * ECG 12 lead (10/25/2024 1:46 PM CDT) Michael Jennings MD ECG ORDERABLES Final Resu lt * CT Lung Cancer Screening (05/16/2024 9:[address]IVER) Anatomical Region Laterality Modality Chest N/A Computed Tomogra phy 05/16/2024 10:[address]IVER Impressions 05/16/2024 10:[address]IVER 1. LungRADS Category 2 (benign) . Recommend [...] Sachin Okeefe M.D. Narrative 05/16/2024 10:[address]IVER EXAMINATION: Lung cancer screening CT of the [...] Most Recently Relevant to Health Maintenance Insurance Member Subscriber Plan / Payer (Ef fective 2020-Present) Name:Sachin Kramer Member ID:[id number] Relation to Subscriber:Self Name:Sachin Kramer Subscriber ID:[id number] Payer ID:[id number] Type:VUELOGICO/[employer]opresto Address: [employer] [place] [address] Member Subscriber Plan / Payer (Ef fective 2020-Present) Name:Sachin Kramer Member ID:[id number] Relation to Subscriber:Self Name:Sachin Kramer Subscriber ID:[id number] Payer ID:[id number] Type:VUELOGICO/PPO Address: [employer] [employer] [address]S [id number] [place] [address] Care Teams Outpatient Receptionist Relationship Specialty Start Date End Date Cindy Vela DO PCP - General Family Medicine 03/18/23 Cindy Vela DO Family Medicine 03/18/23
--- OUTSIDE RECORDS SUMMARY | 2024-12-22 07:57 | XMS_ITS | Clinical Summary ---
Author Organization [facility] Address [address] [place] [address] Care Team Providers Care Shopping Centre Manager Name Role Phone Cindy Vela DO Primary Care Provider [phone] Cindy Vela DO Unavailable [phone] Allergies No known active allergies Medications aspirin [...] mouth 2 (two) times a day 05/09/20 025 Discontin ued(Thera py completed ) Active [...] (11/15/2020): Added automatically from request for surgery [id number] Dizziness 06/26/2019 Intermittent claudication 06/26/2019 Palpitations 06/26/2019 Snoring 12/30/2016 Carotid artery stenosis 12/30/2016 Chest pain 12/28/2016 Hyperlipidemia 12/28/2016 Resolved Problems Problem Noted Date Diagnosed Date Resolved Date Obstructive sleep apnea syndrome 02/11/2017 11/02/2023 Encounters Date Type Department Care Team Description 12/15/2024 9:30 AM CDT Office Visit [facility] Cardiology [address] [place] [phone] Michael Jennings MD Peripheral arterial disease (Primary Dx); Bilateral carotid artery stenosis; Mixed hyperlipidemia; Intermittent claudication; Patent foramen ovale; Dizziness; Palpitations; Precordial chest pain; Exertional dyspnea; Coronary artery calcification seen on CT scan; Obstructive sleep apnea 12/13/2024 Results Follow-Up [facility] Cardiology [address] [place] [address] [place] [phone] Lili White NP CBC with auto differential, Thyroid Function [place], Lipid panel, Additional followed-up results: 2 12/11/2024 Orders Only [facility] Cardiology [address] [place] [phone] Michael Jennings MD 10/25/2024 1:30 PM CDT - 10/25/2024 11:59 PM CDT Hospital Encounter [facility] OP Cardiac Testing [address] [place] [address] Palpitations; Patent foramen ovale; Bilateral carotid artery stenosis; Peripheral arterial disease Discharge Disposition: Discharge to home or self care 10/25/2024 1:15 PM CDT Clinical Support [facility] Cardiology [address] [place] [phone] Palpitations (Primary Dx) 10/19/2024 Telephone [facility] Cardiology [address] [place] [phone] Michael Jennings MD from Last 3 Months Immunizations Immunization Administration Dates Next Due Hep [...] 2016 Coronary artery disease Peripheral artery disease PFO (patent foramen ovale) Family History Medical History Relation Name Comments [...] on file Legal Sex Male 5:18 PM PAVER LAYER Gender Identity Not on file Sexual Orientation Not on file 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 Not on file N ot on file Obstetrics History Last Filed Vital Signs Vital Sign Reading Time Taken Comments Blood Pressure 118/68 12/15/2024 9:33 AM CDT Pulse 80 12/15/2024 9:33 AM CDT Temperature 36.4 C (97.6 F) 02/03/2024 1:07 PM CDT Respiratory Rate 18 05/31/2024 10:32 AM PAVER LAYER Oxygen Saturation 98% 12/15/2024 9:33 AM CDT Inhaled Oxygen Concentration - - Weight 83.5 kg (184 lb) 12/15/2024 9:33 AM CDT Height 180.3 cm (5' 11) 12/15/2024 9:33 AM CDT Body Mass Index 25.66 12/15/2024 9:33 AM CDT Plan of Treatment Health Maintenance Due Date Last Done Comments Colon Cancer Screening-Colonoscopy 1960 Depression Screening 1960 Hepatitis C Screening 1960 Prostate Cancer Screening-PSA 1960 DTaP/Tdap/Td Vaccine (1 - Tdap) 1971 Regular Well Visit/Exam 18-64 1978 Pneumococcal vaccine <65 (1 of 2 - PCV) 1979 Zoster Vaccine (1 of 2) 2010 Covid-19 Vaccine (3 - season) 2024, 06/13/2020 Influenza Vaccine (#1) 2025 , 03/23/2019, 03/31/2018 Lung Cancer Screening 05/17/2025 05/16/2024 [...] Read Routine (OP Routine) 05/16/2024 9:50 AM PAVER LAYER Personal history of nicotine dependence from Last 3 Months or Most Recently Relevant to Health Maintenance Results * Thyroid Function [place] (12/11/2024 8:14 AM CDT) TSH 1.41 0.40 - 4.50 mIU/L [employer] 12/11/2024 8:14 AM CDT 12/11/2024 8:16 AM CDT Michael Jennings MD LAB BLOOD ORDERABLES Final Result [facility] [employer] [address] [place] [address] * CBC with auto differential (12/11/2024 8:14 AM CDT) WBC 6.3 3.8 - 10.8 Thousand/u L [employer] RBC, POC 4.35 4.20 - 5.80 Million/uL [employer] [facility] Hgb 13.9 13.2 - 17.1 g/dL [employer] [facility] Hct 41.5 38.5 - 50.0 % [employer] MCV 95.4 80.0 - 100.0 fL [employer] MCH 32.0 27.0 - 33.0 pg [employer] [facility] MCHC 33.5 32.0 - 36.0 g/dL [employer] [facility] Comment: For adults, a slight decrease in the calculated MCHC value (in the range of 30 to 32 g/dL) is most likely not clinically significant; however, it should be interpreted with caution in correlation with other red cell parameters and the patient's clinical condition. Rdw 12.8 11.0 - 15.0 % [employer] Platelets 186 140 - 400 Thousand/u L [employer] MPV 9.3 7.5 - 12.5 fL [employer] [facility] Neutrophils, abs 3,843 1,500 - 7,800 cells/uL [employer] [facility] Lymphocytes, abs 1,865 850 - 3,900 cells/uL [employer] Monocyte abs 435 200 - 950 cells/uL [employer] [facility] Eosinophils, abs 120 15 - 500 cells/uL [employer] Basophils, abs 38 0 - 200 cells/uL [facility] Neutrophils 61 % [facility] Lymphocyte pct 29.6 % [facility] Monocytes 6.9 % [facility] Eosinophils 1.9 % [employer] Basophils 0.6 % [facility] 12/11/2024 8:14 AM CDT 12/11/2024 8:16 AM CDT Michael Jennings MD LAB BLOOD ORDERABLES Final Result Performing Organization Address City/[facility]/ZIP Co de Phone Number [facility] [address] [place] [address] * Magnesium (12/11/2024 8:14 AM CDT) Pathologist [facility] Magnesium 2.1 1.5 - 2.5 mg/dL [facility] 12/11/2024 8:14 AM CDT 12/11/2024 8:16 AM CDT Michael Jennings MD LAB BLOOD ORDERABLES Final Result Performing Organization Address [facility] de Phone Number [facility] [address] [place] [address] * Lipid panel (12/11/2024 8:14 AM CDT) Cholesterol 136 <200 mg/dL [facility] HDL 56 > OR = 40 mg/dL [facility] Triglycerides 63 <150 mg/dL [facility] LDL 66 mg/dL (calc) [facility] Comment: Reference range: <100 Desirable range <100 mg/dL for primary prevention; <70 mg/dL for patients with CHD or diabetic patients with > or = 2 CHD risk factors. LDL-C is now calculated using the Jono-Freddy calculation, which is a validated novel method providing better accuracy than the Friedewald equation in the estimation of LDL-C. Jono KANG et al. JANE. 2013;310(19): 6522-1299 (http://education.MOWGLI.Master Route/faq/QYQ707) Chol/HDL ratio 2.4 <5.0 (calc) [facility] Non-HDL, (LDL+VLDL) 80 <130 mg/dL (calc) [facility] Comment: For patients with diabetes plus 1 major ASCVD risk factor, treating to a non-HDL-C goal of <100 mg/dL (LDL-C of <70 mg/dL) is considered a therapeutic option. 12/11/2024 8:14 AM CDT 12/11/2024 8:16 AM CDT us Michael Jennings MD LAB BLOOD ORDERABLES Final Result [facility] [address] [place] [address] * Comprehensive metabolic panel (12/11/2024 8:14 AM CDT) Pathologist [facility] Glucose 94 65 - 99 mg/dL [facility] CIHIKarlee Barone Comment: Fasting reference interval BUN 15 7 - 25 mg/dL [facility] SOL ELIXIRSKarlee [facility]one Creatinine 1.05 0.70 - 1.35 mg/dL [facility] eGFR 79 > OR = 60 mL/min/1.7 3m2 [facility]HIKarlee [facility] BUN/creat ratio SEE NOTE: 6 - 22 (calc) [facility]HIKar[facility] Comment: Not Reported: BUN and Creatinine are within reference range. Sodium 139 135 - 146 mmol/L [facility] Potassium, pl 4.1 3.5 - 5.3 mmol/L [facility] EL[facility]IR[facility] Chloride 104 98 - 110 mmol/L [facility]isai CO2 29 20 - 32 mmol/L [facility] SOL [facility]IRS- [facility] Calcium 9.3 8.6 - 10.3 mg/dL [facility] Protein, sr 6.6 6.1 - 8.1 g/dL [facility] Albumin 4.3 3.6 - 5.1 g/dL [facility] SOL ELIXIRS-S [facility] GLOBULIN 2.3 1.9 - 3.7 g/dL (calc) [facility] Alb/glob ratio 1.9 1.0 - 2.5 (calc) [facility] Bilirubin, total 0.9 0.2 - 1.2 mg/dL [facility] CIHIKarlee Barone Alk phos 77 35 - 144 U/L [facility] CIHI[facility] AST 18 10 - 35 U/L [facility] ALT (SGPT) 23 9 - 46 U/L [facility] 12/11/2024 8:14 AM CDT 12/11/2024 8:16 AM CDT Michael Jennings MD LAB BLOOD ORDERABLES Final Result [facility] [address] [place] [address] * 48 HR Holter Monitor (10/25/2024 2:01 PM CDT) Anatomical Region Laterality Modality Ultrasound Narrative 10/31/2024 9:11 AM CDT Patient Id: Sachin Kramer is a 64 y.o. male. MR#: [id number] Date of the procedure: 25 October 2024 [...] CT Lung Cancer Screening (05/16/2024 9:50 AM PAVER LAYER) Anatomical Region Laterality Modality Chest N/A Computed Tomogra phy 05/16/2024 10:2 5 AM PAVER LAYER Impressions 05/16/2024 10:49 AM PAVER LAYER 1. LungRADS Category 2 (benign) . Recommend [...] Sachin Okeefe M.D. Narrative 05/16/2024 10:49 AM PAVER LAYER EXAMINATION: Lung cancer screening CT of the [...] Most Recently Relevant to Health Maintenance Insurance Care Teams Shopping Centre Manager Relationship Specialty Start Date End Date Cindy Vela DO PCP - General Family Medicine 03/18/23 Cindy Vela DO Family Medicine 03/18/23
[2024-12-22 08:16] LABS: Estimated Glomerular Filt Rate > 60
== END 2024-12-22 07:53 | disposition home or self-care (01) ==
PROVIDERS: PCP Family Medicine; Visit Provider Otolaryngology
DX: H90.3 Sensorineural hearing loss, bilateral (principal)
CPT/HCPCS: 70496; Q9967